=== PATIENT | male | born 1950 | race Hispanic/Latino ===

== ENCOUNTER 2017-05-11 10:58 | Inpatient (IN) | payer BC ==
[2017-05-11] MEDS ORDERED: Albuterol-Ipratrop 3 mg / 0.5 (3 ml) UD ONE (11:42)
--- NOTE | 2017-05-11 12:33 | C.PDOC ---
History Of Present Illness 66 y/o male, with history of metastatic lung cancer, presents to the ER complaining of a new onset of SOB which has been present for the past 1-2 weeks. Patient has SERNA with minor exertion. Patient s/p nebulizer treatment states that there is no significant improvement. Denies associated chest pain and dizziness. Denies history of CHF and lung disease. He is currently in hematology/oncology treatment for the past 1 month at [facility]. He is pending a lung transplant. Time Seen by Provider: 05/11/17 12:06 Chief Complaint (Nursing): Shortness Of Breath History Per: Patient History/Exam Limitations: no limitations Onset/Duration Of Symptoms: Days Current Symptoms Are (Timing): Still Present Severity: Moderate Past Medical History Reviewed: Historical Data, Nursing Documentation, Vital Signs Vital Signs: Last Vital Signs Temp 97.7 F 05/11/17 15:36 Pulse 76 05/11/17 15:36 Resp 18 05/11/17 15:36 BP 124/74 05/11/17 15:36 Pulse Ox 99 05/11/17 15:36 - Medical History PMH: Cardia Arrhythmia, HTN Surgical History: Pacemaker - [facility] INCIS W REM OF FORIEGN BODY OR DEV FROM SKIN & SUBCUT TISSUE (12/22/12) INITIAL INSERT TRANS LEADS INTO ATRIUM [employer] VENTRICLE (01/10/13) INITIAL INSERTION OF DUAL-CHAMBER DEVICE (01/10/13) REVISION OR RELOCATION OF CARDIAC DEVICE POCKET (10/13/12) Family History: States: No Known Family Hx - Social History Hx Tobacco Use: No Hx Alcohol Use: No Hx Substance Use: Yes - Immunization History Hx Influenza Vaccination: Yes Hx Pneumococcal Vaccination: Yes Review Of Systems Except As Marked, All Systems Reviewed And Found Negative. Cardiovascular: Negative for: Chest Pain Respiratory: Positive for: Shortness of Breath Neurological: Negative for: Dizziness Physical Exam - Physical Exam Appears: Non-toxic, Other (mild respiratory distress) Skin: Normal Color, Warm Head: Atraumatic, Normacephalic Eye(s): bilateral: Normal Inspection Chest: Symmetrical Cardiovascular: Other (RRR) Respiratory: Other (dyspnea,no edema, speaking full sentences) Gastrointestinal/Abdominal: Soft Extremity: Normal ROM, No Pedal Edema Extremity: Bilateral: Atraumatic Neurological/Psych: Oriented x3, Normal Speech ED Course And Treatment - Laboratory Results Result Diagrams: 05/11/17 13:26 05/11/17 13:26 ECG: Interpreted By Me, Viewed By Me ECG Rhythm: Sinus Rhythm Rate From EC O2 Sat by Pulse Oximetry: 96 (RA) Pulse Ox Interpretation: Normal - Other Rad CXR X-Ray: Interpreted by Me, Viewed By Me Interpretation: Increased vascular congestion compared to CXR- 2016, elevated right hemidiaphragm. Progress - Re-Evaluation Re-evaluation Note: 05/11/17 15:42 D/W DR GLOVER AWARE OF ER FINDINGS WILL ADMIT 05/11/17 15:43 PERSIST SOB, SERNA W MIN EXERTION. VSS. - Data Reviewed Data Reviewed: Lab, Diagnostic imaging, EKG, Old records - Critical Care Citical Care: Excluding Proc Time Critical Care Time: 90 minutes Medical Decision Making Medical Decision Making: Plan --Labs --CXR --O2 via nasal cannula Disposition Counseled Patient/Family Regarding: Studies Performed, Diagnosis - Disposition Disposition: HOSPITALIZED Disposition Time: 15:43 Condition: STABLE Forms: [employer] ([place]) - POA Present On Arrival: None - Clinical Impression Clinical Impression: Dyspnea, Pneumonia - Scribe Statement The provider has reviewed the documentation as recorded by the Shahnaz Lobo Provider Attestation: All medical record entries made by the Scribe were at my direction and personally dictated by me. I have reviewed the chart and agree that the record accurately reflects my personal performance of the history, physical exam, medical decision making, and the department course for this patient. I have also personally directed, reviewed, and agree with the discharge instructions and disposition.
--- NOTE | 2017-05-11 13:25 | RAD ---
Chest x-ray two views History: Liver cancer. Comparison: 03/05/2016 Findings Right basilar atelectasis with small right pleural effusion. Trace left pleural effusion. Venous congestion. A small nodular density at the right lung apex may represent small nodule and or granuloma. Left hilar prominence. Tortuous ectatic aorta. Mild cardiomegaly. Elevated right hemidiaphragm. Left-sided pacemaker. Degenerative changes the spine and shoulders. Impression: Right basilar atelectasis with small right pleural effusion. Trace left pleural effusion. Venous congestion. A small nodular density at the right lung apex may represent small nodule and or granuloma. Left hilar prominence. Tortuous ectatic aorta. Mild cardiomegaly. Elevated right hemidiaphragm. Left-sided pacemaker.
[2017-05-11 13:32] LABS: BASO # 0.1 K/uL (0.0-0.2); LYMPH # 0.4 K/uL (1.0-4.3); NEUT # 4.2 K/uL (1.8-7.0)
[2017-05-11 13:39] LABS: EOS % 0.5 % (0.0-4.0); LYMPH % 6.8 % (20.0-40.0); MEAN CELL VOLUME 98.1 fL (80.0-94.0); MEAN CORPUSCULAR HEMOGLOBIN 33.8 pg (27.0-31.0); MEAN CORPUSCULAR HGB CONC 34.4 g/dL (33.0-37.0); MEAN PLATELET VOLUME 9.2 fL (7.2-11.7); MONO # 0.9 K/uL (0.0-0.8); MONO % 15.9 % (0.0-10.0); NEUT % 75.8 % (50.0-75.0); NRBC % 0.1 % (0.0-2.0); RBC 3.82 Mil/uL (4.40-5.90); RED CELL DISTRIBUTION WIDTH 14.4 % (11.5-14.5)
[2017-05-11 13:40] LABS: VENOUS BLOOD GAS BASE EXCESS 3.9 mmol/L (0.0-2.0); VENOUS BLOOD GAS PCO2 51 mmHg (40-60); VENOUS BLOOD GAS PO2 15 mm/Hg (30-55); VENOUS BLOOD PH 7.38 (7.32-7.43)
[2017-05-11 13:41] LABS: INR 1.5; PROTHROMBIN TIME 16.9 SECONDS (9.7-12.2)
[2017-05-11 13:48] LABS: ALB/GLOB RATIO 0.8 (1.0-2.1); ALBUMIN 3.2 g/dL (3.5-5.0); ALT/SGPT 55 U/L (21-72); AST/SGOT 83 U/L (17-59); BLOOD UREA NITROGEN 9 mg/dL (9-20); GFR AFRICAN-AMERICAN > 60; GFR NON-AFRICAN AMERICAN > 60
[2017-05-11 13:49] LABS: HEMOGLOBIN 12.9 g/dL (12.0-18.0); WHITE BLOOD COUNT 5.5 K/uL (4.8-10.8)
[2017-05-11 13:50] LABS: PLATELET COUNT 102 K/uL (130-400)
[2017-05-11 13:57] LABS: B-TYPE NATRIURETIC PEPTIDE 549 pg/mL (0-900)
[2017-05-11] MEDS ORDERED: Iodixanol 320 MG/ML 100 ML BOTTLE IV ONE (14:18)
[2017-05-11 14:39] LABS: BANDS 5 % (0-2); EOSINOPHIL 1 % (0-4); LYMPHOCYTE 10 % (20-40); MONOCYTE 4 % (0-10); NEUTROPHIL 79 % (50-75); PLATELET ESTIMATE SLIGHTLY DECREASED (NORMAL); REACTIVE LYMPHOCYTES 1 % (0-0); TOTAL CELLS COUNTED 100
--- NOTE | 2017-05-11 15:17 | CT ---
CTA chest PE protocol Indication: SOB ho liver ca Technique: Contiguous axial images were obtained through the chest with intravenous contrast enhancement. Sagittal and coronal reconstructions were generated and reviewed. This CT exam was performed using 1 or more of the following dose reduction techniques: Automated exposure control, adjustment of the MAA and/or kV according to patient size, and/or use of iterative reconstruction technique. IV Contrast: 100 mL Visipaque 320 Radiation dose (DLP): 573.23 MGy-cm. Comparison: Chest x-ray performed 06/14/13 Findings: Visualized portions of the inferior thyroid gland appear unremarkable. The mediastinal and hilar vascular structures appear within normal limits. The heart appears within normal limits of size. Single lead left-sided pacemaker. No large central or segmental pulmonary embolus evident. Right basilar atelectasis/infiltrate. Trace fluid along the right-sided fissures. No pneumothorax. No suspicious pulmonary nodules measuring greater than 5 mm. Elevation of the right hemidiaphragm. Limited visualized portions of the upper abdomen ; partially imaged splenomegaly. Perihepatic/upper abdominal ascites. Heterogeneous hepatic parenchyma. Nodular hepatic contour. Probable suture material within the right upper quadrant along the undersurface of the liver. Scoliosis. Degenerative changes. Impression: No large central or segmental pulmonary embolus identified. Single lead left-sided pacemaker. Right basilar atelectasis/infiltrate. Trace fluid along the right-sided fissures. Elevation of the right hemidiaphragm. Limited visualized portions of the upper abdomen ; partially imaged splenomegaly. Perihepatic/upper abdominal ascites. Heterogeneous hepatic parenchyma. Nodular hepatic contour. Probable suture material within the right upper quadrant along the undersurface of the liver.
[2017-05-11] MEDS ORDERED: cefTRIAXone IV 1 gm in Dextros 50 ML IV STA (15:42)
[2017-05-11] MEDS ORDERED: Azithromycin 500 MG in Sodium Chloride 0.9% 250 ML IV STA (15:42)
--- NOTE | 2017-05-11 16:01 | CP.PCM.HP ---
History of Present Illness - History of Present Illness History of Present Illness: Chief complaint: Cough and not feeling well, shortness of breath History of present illness: 66-year-old male with a history of multiple medical problems including history of hepatocellular carcinoma, liver cirrhosis, status post a resection of the partial liver, radiofrequency ablation, hypertension, SVT, status post ablation and pacemaker. Patient is not feeling well for almost a week, gradually got worse, increasing chills and feverish noted. Patient started having increasing cough, and shortness of breath, unable to breathe well today, he came to the emergency room. Patient is also having chills and sweating pleuritic pain The patient was seen by me almost a year ago in my office, currently he is being followed up by the liver transplant clinic at [facility], and he is being periodically evaluated. Patient now having cough, sore throat, chills, and also productive sputum. Symptoms the particular mucus noted. Patient was taking [id number] medication, without any improvement. Past medical history: Hypertension, SVT, status post ablation, liver cirrhosis, hepatocellular carcinoma, status post resection of tumor Surgical history: Hemorrhoidectomy, radiofrequency ablation of the liver tumor, partial resection of the liver, pacemaker placement. No known drug allergy Family history: Father and mother of natural causes. Father had a history of pulmonary embolism, mother had a history of heart failure. Social history: Former smoker. Quit many years ago. No alcoholic abuse. Denies any drugs Review of systems: Patient is having some headache, cough increasing, wheezing and shortness of breath, with mucous production noted productive cough moted Leg swelling and weakness noted Vital signs reviewed No neck vein distention noted Bilateral minimal expiratory wheezing noted CVS regular heart sound, no murmur noted Abdomen soft, nontender. 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 Now patient was admitted to the hospital with the possibility community acquired pneumonia. Patient is on IV antibiotic now, will continue the Rocephin and Zithromax intravenously. Bronchodilators. Cough medications. Labs the patient had 24-hour see how he does. DVT and GI prophylaxis and will follow the patient Present on Admission - Present on Admission Any Indicators Present on Admission: No History of DVT/PE: No History of Uncontrolled Diabetes: No Urinary Catheter: No Decubitus Ulcer Present: No Past Patient History - Past Social History Smoking Status: Never Smoked - CARDIAC Hx Cardia Arrhythmia: Yes Hx Hypertension: Yes Hx Pacemaker: Yes - HEMATOLOGICAL/ONCOLOGICAL Hx Blood Disorders: Yes Hx Cancer: Yes (Liver) Hx Chemotherapy: Yes (2 months ago) - PSYCHIATRIC Hx Substance Use: Yes - SURGICAL HISTORY Hx Surgeries: Yes Other/Comment: Liver surgery. Meds Allergies/Adverse Reactions: Allergies Allergy/AdvReac Type Severity Reaction Status Date / Time propofol Allergy Verified 05/11/17 11:52 Results - Vital Signs Recent Vital Signs: Last Vital Signs Temp 97.7 F 05/11/17 15:36 Pulse 76 05/11/17 15:36 Resp 18 05/11/17 15:36 BP 124/74 05/11/17 15:36 Pulse Ox 96 05/11/17 15:43 - Labs Result Diagrams: 05/11/17 13:26 05/11/17 13:26 Labs: Laboratory Results - last 24 hr 05/11/17 05/11/17 05/11/17 13:26 13:26 13:26 WBC 5.5 D RBC 3.82 L Hgb 12.9 D Hct 37.4 MCV 98.1 H MCH 33.8 H MCHC 34.4 RDW 14.4 Plt Count 102 L D MPV 9.2 Neut % (Auto) 75.8 H Lymph % (Auto) 6.8 L Ransom % (Auto) 15.9 H Eos % (Auto) 0.5 Baso % (Auto) 1.0 Neut # (Auto) 4.2 Lymph # (Auto) 0.4 L Ransom # (Auto) 0.9 H Eos # (Auto) 0.0 Baso # (Auto) 0.1 Neutrophils % (Manual) 79 H Band Neutrophils % 5 H Lymphocytes % (Manual) 10 L Reactive Lymphs % 1 H Monocytes % (Manual) 4 Eosinophils % (Manual) 1 Platelet Estimate Slightly decreased L RBC Morphology Normal PT 16.9 H INR 1.5 APTT 30 pO2 VBG pH VBG pCO2 VBG HCO3 VBG Total CO2 VBG O2 Sat (Calc) VBG Base Excess VBG Potassium Glucose Lactate Sodium 139 Potassium 3.3 L Chloride 100 Carbon Dioxide 30 Anion Gap 13 BUN 9 Creatinine 0.6 L Est GFR ( Amer) > 60 Est GFR (Non-Af Amer) > 60 Random Glucose 98 Calcium 8.0 L Total Bilirubin 2.2 H AST 83 H ALT 55 Alkaline Phosphatase 149 H Troponin I < 0.0120 NT-Pro-B Natriuret Pep 549 Total Protein 7.0 Albumin 3.2 L Globulin 3.9 Albumin/Globulin Ratio 0.8 L Venous Blood Potassium 05/11/17 13:36 WBC RBC Hgb Hct MCV MCH MCHC RDW Plt Count MPV Neut % (Auto) Lymph % (Auto) Ransom % (Auto) Eos % (Auto) Baso % (Auto) Neut # (Auto) Lymph # (Auto) Ransom # (Auto) Eos # (Auto) Baso # (Auto) Neutrophils % (Manual) Band Neutrophils % Lymphocytes % (Manual) Reactive Lymphs % Monocytes % (Manual) Eosinophils % (Manual) Platelet Estimate RBC Morphology PT INR APTT pO2 15 L VBG pH 7.38 VBG pCO2 51 VBG HCO3 25.8 VBG Total CO2 31.8 H VBG O2 Sat (Calc) 20.9 L VBG Base Excess 3.9 H VBG Potassium 3.1 L Glucose 97 Lactate 1.6 Sodium 139.0 Potassium Chloride 101.0 Carbon Dioxide Anion Gap BUN Creatinine Est GFR ( Amer) Est GFR (Non-Af Amer) Random Glucose Calcium Total Bilirubin AST ALT Alkaline Phosphatase Troponin I NT-Pro-B Natriuret Pep Total Protein Albumin Globulin Albumin/Globulin Ratio Venous Blood Potassium 3.1 L
[2017-05-11] MEDS ORDERED: cefTRIAXone IV 1 gm in Dextros 50 ML IVPB ONE (16:02)
[2017-05-11] MEDS: Albuterol-Ipratrop 3 mg / 0.5 (3 ml) UD INH SCH (20:50)
[2017-05-12] MEDS: Albuterol-Ipratrop 3 mg / 0.5 (3 ml) UD INH SCH ×4 (02:02→20:11)
[2017-05-12] MEDS: Promethazine 6.25 MG/5 ML CUP PO PRN ×2 (05:04→14:36)
[2017-05-12] MEDS: Azithromycin 500 MG in Sodium Chloride 0.9% 250 ML IVPB SCH (09:35)
[2017-05-12] MEDS: cefTRIAXone IV 1 gm in Dextros 50 ML IVPB SCH (09:35)
[2017-05-12] MEDS: Metoprolol Succinate 25 mg XL Tab PO SCH (09:36)
[2017-05-12] MEDS: Pantoprazole 20 mg EC Tab PO SCH (09:36)
[2017-05-12] MEDS ORDERED: Tramadol 25 mg PO PRN (14:07)
[2017-05-12] MEDS: MethylPREDNISolone 40 mg Vial IVP SCH (14:36)
--- NOTE | 2017-05-12 21:11 | CP.PCM.PN ---
Subjective - Date & Time of Evaluation Date of Evaluation: 05/12/17 Time of Evaluation: 21:10 - Subjective Subjective: Patient is morning was having increasing coughing, and shortness of breath. At this time he is receiving bronchodilators. Currently on antibiotic. The mucus is very scanty. He does not have any fever or chills. Vital signs reviewed No neck vein distention noted lungs bilaterally minimal expiratory wheezing noted especially in the lower lung drew. CVS regular heart sound, no murmur noted Abdomen soft, nontender. 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 CAT scan of the lungs showing evidence of right lower lung atelectatic, versus pneumonia Assessment and recommendation: 66-year-old male with a history of hepatocellular carcinoma, liver cirrhosis, status post resection of partial liver, radiofrequency ablation, hypertension, SVT and status post ablation and pacemaker. Patient now admitted with worsening bronchitis, and associated minimal pneumonia. will pro calcitonin level. Will start the patient on Solu-Medrol today. Currently on antibiotic. Will follow the patient Objective - Vital Signs/Intake and Output Vital Signs (last 24 hours): Temp Pulse Resp BP Pulse Ox 98.7 F 84 20 129/74 97 05/12/17 15:23 05/12/17 15:23 05/12/17 15:23 05/12/17 15:23 05/12/17 16:00 Intake and Output: 05/12/17 05/13/17 18:59 06:59 Intake Total 720 Balance 720 - Medications Medications: Current Medications Albuterol/Ipratropium (Duoneb 3 Mg/0.5 Mg (3 Ml) Ud) 3 ml INH RQ6 [facility] Last Admin: 05/12/17 20:11 Dose: 3 ml Heparin Sodium (Porcine) (Heparin) 5,000 units SC Q12 [facility] Last Admin: 05/12/17 09:36 Dose: 5,000 units Ceftriaxone Sodium (Rocephin Iv 1 Gm Duplex) 50 mls @ 100 mls/hr IVPB DAILY [facility] Last Admin: 05/12/17 09:35 Dose: 100 mls/hr Azithromycin 500 mg/ Sodium (Chloride) 250 mls @ 250 mls/hr IVPB DAILY [facility] Last Admin: 05/12/17 09:35 Dose: 250 mls/hr Methylprednisolone (Solu-Medrol) 40 mg IVP Q12H [facility] Last Admin: 05/12/17 14:36 Dose: 40 mg Metoprolol Succinate (Toprol Xl) 25 mg PO DAILY [facility] Last Admin: 05/12/17 09:36 Dose: 25 mg Pantoprazole Sodium (Protonix Ec Tab) 20 mg PO DAILY [facility] Last Admin: 05/12/17 09:36 Dose: 20 mg Promethazine HCl (Phenergan Syrup) 6.25 mg PO Q6 PRN PRN Reason: Cough Last Admin: 05/12/17 14:36 Dose: 6.25 mg Tramadol HCl (Ultram) 25 mg PO TID PRN PRN Reason: headche Last Admin: 05/12/17 14:37 Dose: 25 mg - Labs Labs: 05/11/17 13:26 05/11/17 13:26 PT 16.9 SECONDS (9.7-12.2) H 05/11/17 13:26 INR 1.5 05/11/17 13:26 APTT 30 SECONDS (21-34) 05/11/17 13:26
[2017-05-13] MEDS: Albuterol-Ipratrop 3 mg / 0.5 (3 ml) UD INH SCH ×5 (01:19→22:00)
[2017-05-13] MEDS: MethylPREDNISolone 40 mg Vial IVP SCH ×3 (01:45→21:27)
[2017-05-13 07:48] LABS: ALB/GLOB RATIO 0.8 (1.0-2.1); ALBUMIN 2.8 g/dL (3.5-5.0); ALT/SGPT 42 U/L (21-72); AST/SGOT 58 U/L (17-59); BLOOD UREA NITROGEN 10 mg/dL (9-20); CALCIUM 7.5 mg/dl (8.6-10.4); GFR AFRICAN-AMERICAN > 60; GFR NON-AFRICAN AMERICAN > 60
[2017-05-13 08:06] LABS: BASO % 0.2 % (0.0-2.0); EOS % 0.1 % (0.0-4.0); HEMOGLOBIN 12.6 g/dL (12.0-18.0); LYMPH # 0.2 K/uL (1.0-4.3); LYMPH % 5.7 % (20.0-40.0); MEAN CELL VOLUME 98.2 fL (80.0-94.0); MEAN CORPUSCULAR HEMOGLOBIN 33.9 pg (27.0-31.0); MEAN CORPUSCULAR HGB CONC 34.5 g/dL (33.0-37.0); MEAN PLATELET VOLUME 9.5 fL (7.2-11.7); MONO # 0.1 K/uL (0.0-0.8); MONO % 4.4 % (0.0-10.0); NEUT % 89.6 % (50.0-75.0); NRBC % 0.4 % (0.0-2.0); PLATELET COUNT 94 K/uL (130-400); RBC 3.73 Mil/uL (4.40-5.90); RED CELL DISTRIBUTION WIDTH 13.7 % (11.5-14.5); WHITE BLOOD COUNT 3.3 K/uL (4.8-10.8)
[2017-05-13 09:07] LABS: BANDS 1 % (0-2); LYMPHOCYTE 6 % (20-40); MONOCYTE 3 % (0-10); NEUTROPHIL 90 % (50-75); PLATELET ESTIMATE DECREASED (NORMAL); TOTAL CELLS COUNTED 100
[2017-05-13] MEDS: Pantoprazole 20 mg EC Tab PO SCH (09:40)
[2017-05-13] MEDS: Metoprolol Succinate 25 mg XL Tab PO SCH (09:40)
[2017-05-13] MEDS: cefTRIAXone IV 1 gm in Dextros 50 ML IVPB SCH (09:41)
[2017-05-13] MEDS: Azithromycin 500 MG in Sodium Chloride 0.9% 250 ML IVPB SCH (09:42)
--- NOTE | 2017-05-13 20:32 | CP.PCM.PN ---
Subjective - Date & Time of Evaluation Date of Evaluation: 05/13/17 Time of Evaluation: 20:32 - Subjective Subjective: Patient is still having increasing coughing spells, coughing episodes. Mostly dry cough noted. The patient was able to walk around, but he is feeling somewhat winded, SOB noted upon walking. No oxygen desaturation noted. Patient is eating well, denies any chest pain, but the right-sided pleuritic discomfort noted Vital signs reviewed Vital signs reviewed No neck vein distention noted Chest good air entry bilaterally, no wheezing or rales noted CVS regular heart sound, no murmur noted Abdomen soft, nontender. 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 Vital signs and oxygen saturation today is normal. Mild tachycardia noted today, he is also having tremors in the hands after the nebulizer. Assessment compression: Patient is a 66-year-old male with a history of hepatocellular carcinoma, liver cirrhosis, status post partial liver resection, radiofrequency ablation, hypertension and SVT. Status post ablation and pacemaker. procalcitonin level is normal, less likely pneumonia, most likely patient has a acute bronchitis. We'll reduce the steroid, continue antibiotic, possible discharge planning the morning. Objective - Vital Signs/Intake and Output Vital Signs (last 24 hours): Temp Pulse Resp BP Pulse Ox 98.2 F 65 18 111/65 97 05/13/17 15:50 05/13/17 15:50 05/13/17 15:50 05/13/17 15:50 05/13/17 15:50 Intake and Output: 05/13/17 05/14/17 18:59 06:59 Intake Total 950 Balance 950 - Medications Medications: Current Medications Albuterol/Ipratropium (Duoneb 3 Mg/0.5 Mg (3 Ml) Ud) 3 ml INH Q8 [facility] Heparin Sodium (Porcine) (Heparin) 5,000 units SC Q12 [facility] Last Admin: 05/13/17 09:40 Dose: 5,000 units Ceftriaxone Sodium (Rocephin Iv 1 Gm Duplex) 50 mls @ 100 mls/hr IVPB DAILY [facility] Last Admin: 05/13/17 09:41 Dose: 100 mls/hr Azithromycin 500 mg/ Sodium (Chloride) 250 mls @ 250 mls/hr IVPB DAILY [facility] Last Admin: 05/13/17 09:42 Dose: 250 mls/hr Methylprednisolone (Solu-Medrol) 20 mg IVP Q12H [facility] Stop: 05/15/17 14:16 Metoprolol Succinate (Toprol Xl) 25 mg PO DAILY [facility] Last Admin: 05/13/17 09:40 Dose: 25 mg Pantoprazole Sodium (Protonix Ec Tab) 20 mg PO DAILY [facility] Last Admin: 05/13/17 09:40 Dose: 20 mg Promethazine HCl (Phenergan Syrup) 6.25 mg PO Q6 PRN PRN Reason: Cough Last Admin: 05/12/17 14:36 Dose: 6.25 mg Tramadol HCl (Ultram) 25 mg PO TID PRN PRN Reason: headche Last Admin: 05/12/17 14:37 Dose: 25 mg - Labs Labs: 05/13/17 07:19 05/13/17 07:19 PT 16.9 SECONDS (9.7-12.2) H 05/11/17 13:26 INR 1.5 05/11/17 13:26 APTT 30 SECONDS (21-34) 05/11/17 13:26
[2017-05-14] MEDS: Albuterol-Ipratrop 3 mg / 0.5 (3 ml) UD INH SCH ×3 (01:33→16:50)
[2017-05-14 08:44] VITALS: RESP 20
[2017-05-14] MEDS: cefTRIAXone IV 1 gm in Dextros 50 ML IVPB SCH (09:30)
[2017-05-14] MEDS: Azithromycin 500 MG in Sodium Chloride 0.9% 250 ML IVPB SCH (09:30)
[2017-05-14] MEDS: Metoprolol Succinate 25 mg XL Tab PO SCH (09:31)
[2017-05-14] MEDS: MethylPREDNISolone 40 mg Vial IVP SCH ×2 (09:32→20:43)
[2017-05-14] MEDS: Promethazine 6.25 MG/5 ML CUP PO PRN (09:32)
[2017-05-14] MEDS: Pantoprazole 20 mg EC Tab PO SCH (09:34)
--- NOTE | 2017-05-14 22:35 | CARD ---
APPROVED REPORT EKG Measurement Heart [id number] <Conclusion> Normal sinus rhythm Cannot rule out Anterior infarct, age undetermined Abnormal ECG
[2017-05-15] MEDS: Albuterol-Ipratrop 3 mg / 0.5 (3 ml) UD INH SCH ×4 (00:46→23:42)
[2017-05-15] MEDS: Metoprolol Succinate 25 mg XL Tab PO SCH (09:11)
[2017-05-15] MEDS: Pantoprazole 20 mg EC Tab PO SCH (09:11)
[2017-05-15] MEDS: Azithromycin 500 MG in Sodium Chloride 0.9% 250 ML IVPB SCH (09:11)
[2017-05-15] MEDS: Promethazine 6.25 MG/5 ML CUP PO PRN (09:11)
[2017-05-15] MEDS: MethylPREDNISolone 40 mg Vial IVP SCH (09:12)
[2017-05-15] MEDS: cefTRIAXone IV 1 gm in Dextros 50 ML IVPB SCH (12:15)
[2017-05-15 16:23] VITALS: O2SAT 96
--- NOTE | 2017-05-15 23:01 | CP.PCM.PN ---
Subjective - Date & Time of Evaluation Date of Evaluation: 05/15/17 Time of Evaluation: 23:00 Objective - Vital Signs/Intake and Output Vital Signs (last 24 hours): Temp Pulse Resp BP Pulse Ox 98.0 F 68 20 123/66 96 05/15/17 15:22 05/15/17 15:22 05/15/17 15:22 05/15/17 15:22 05/15/17 15:22 Intake and Output: 05/15/17 05/16/17 18:59 06:59 Intake Total 650 Balance 650 - Medications Medications: Current Medications Albuterol/Ipratropium (Duoneb 3 Mg/0.5 Mg (3 Ml) Ud) 3 ml INH RQ8 [facility] Last Admin: 05/15/17 16:48 Dose: 3 ml Ceftriaxone Sodium (Rocephin Iv 1 Gm Duplex) 50 mls @ 100 mls/hr IVPB DAILY [facility] Last Admin: 05/15/17 12:15 Dose: 100 mls/hr Azithromycin 500 mg/ Sodium (Chloride) 250 mls @ 250 mls/hr IVPB DAILY [facility] Last Admin: 05/15/17 09:11 Dose: 250 mls/hr Metoprolol Succinate (Toprol Xl) 25 mg PO DAILY [facility] Last Admin: 05/15/17 09:11 Dose: 25 mg Pantoprazole Sodium (Protonix Ec Tab) 20 mg PO DAILY [facility] Last Admin: 05/15/17 09:11 Dose: 20 mg Promethazine HCl (Phenergan Syrup) 6.25 mg PO Q6 PRN PRN Reason: Cough Last Admin: 05/15/17 09:11 Dose: 6.25 mg Tramadol HCl (Ultram) 25 mg PO TID PRN PRN Reason: headche Last Admin: 05/12/17 14:37 Dose: 25 mg - Labs Labs: 05/13/17 07:19 05/13/17 07:19 PT 16.9 SECONDS (9.7-12.2) H 05/11/17 13:26 INR 1.5 05/11/17 13:26 APTT 30 SECONDS (21-34) 05/11/17 13:26
[2017-05-16] MEDS: Albuterol-Ipratrop 3 mg / 0.5 (3 ml) UD INH SCH (07:28)
[2017-05-16 07:55] VITALS: BP 118/69; PULSE 75; TEMP 98.1
[2017-05-16] MEDS: Azithromycin 500 MG in Sodium Chloride 0.9% 250 ML IVPB SCH (10:05)
[2017-05-16] MEDS: Pantoprazole 20 mg EC Tab PO SCH (10:06)
[2017-05-16] MEDS: Metoprolol Succinate 25 mg XL Tab PO SCH (10:06)
[2017-05-16] MEDS: cefTRIAXone IV 1 gm in Dextros 50 ML IVPB SCH (11:00)
--- NOTE | 2017-05-16 12:02 | CP.PCM.DIS ---
Provider - Provider Date of Admission: 05/13/17 17:32 Attending physician: Ally Martin MD Hospital Course - Lab Results Lab Results: Micro Results 05/11/17 15:43 Blood Blood Culture - Preliminary NO GROWTH AFTER 4 DAYS 05/11/17 15:43 Blood Blood Culture - Preliminary NO GROWTH AFTER 4 DAYS Most Recent Lab Values WBC 3.3 K/uL (4.8-10.8) L 05/13/17 07:19 RBC 3.73 Mil/uL (4.40-5.90) L 05/13/17 07:19 Hgb 12.6 g/dL (12.0-18.0) 05/13/17 07:19 Hct 36.6 % (35.0-51.0) 05/13/17 07:19 MCV 98.2 fL (80.0-94.0) H 05/13/17 07:19 MCH 33.9 pg (27.0-31.0) H 05/13/17 07:19 MCHC 34.5 g/dL (33.0-37.0) 05/13/17 07:19 RDW 13.7 % (11.5-14.5) 05/13/17 07:19 Plt Count 94 K/uL (130-400) L 05/13/17 07:19 MPV 9.5 fL (7.2-11.7) 05/13/17 07:19 Neut % (Auto) 89.6 % (50.0-75.0) H 05/13/17 07:19 Lymph % (Auto) 5.7 % (20.0-40.0) L 05/13/17 07:19 Glades % (Auto) 4.4 % (0.0-10.0) 05/13/17 07:19 Eos % (Auto) 0.1 % (0.0-4.0) 05/13/17 07:19 Baso % (Auto) 0.2 % (0.0-2.0) 05/13/17 07:19 Neut # (Auto) 3.0 K/uL (1.8-7.0) 05/13/17 07:19 Lymph # (Auto) 0.2 K/uL (1.0-4.3) L 05/13/17 07:19 Glades # (Auto) 0.1 K/uL (0.0-0.8) 05/13/17 07:19 Eos # (Auto) 0.0 K/uL (0.0-0.7) 05/13/17 07:19 Baso # (Auto) 0.0 K/uL (0.0-0.2) 05/13/17 07:19 Neutrophils % (Manual) 90 % (50-75) H 05/13/17 07:19 Band Neutrophils % 1 % (0-2) 05/13/17 07:19 Lymphocytes % (Manual) 6 % (20-40) L 05/13/17 07:19 Reactive Lymphs % 1 % (0-0) H 05/11/17 13:26 Monocytes % (Manual) 3 % (0-10) 05/13/17 07:19 Eosinophils % (Manual) 1 % (0-4) 05/11/17 13:26 Platelet Estimate Decreased (NORMAL) L 05/13/17 07:19 RBC Morphology Normal 05/11/17 13:26 PT 16.9 SECONDS (9.7-12.2) H 05/11/17 13:26 INR 1.5 05/11/17 13:26 APTT 30 SECONDS (21-34) 05/11/17 13:26 pO2 15 mm/Hg (30-55) L 05/11/17 13:36 VBG pH 7.38 (7.32-7.43) 05/11/17 13:36 VBG pCO2 51 mmHg (40-60) 05/11/17 13:36 VBG HCO3 25.8 mmol/L 05/11/17 13:36 VBG Total CO2 31.8 mmol/L (22-28) H 05/11/17 13:36 VBG O2 Sat (Calc) 20.9 % (40-65) L 05/11/17 13:36 VBG Base Excess 3.9 mmol/L (0.0-2.0) H 05/11/17 13:36 VBG Potassium 3.1 mmol/L (3.6-5.2) L 05/11/17 13:36 Sodium 139.0 mmol/l (132-148) 05/11/17 13:36 Chloride 101.0 mmol/L (98-107) 05/11/17 13:36 Glucose 97 mg/dl (75-110) 05/11/17 13:36 Lactate 1.6 mmol/L (0.7-2.1) 05/11/17 13:36 Sodium 141 mmol/L (132-148) 05/13/17 07:19 Potassium 3.9 mmol/L (3.6-5.2) 05/13/17 07:19 Chloride 105 mmol/L (98-107) 05/13/17 07:19 Carbon Dioxide 28 mmol/L (22-30) 05/13/17 07:19 Anion Gap 12 (10-20) 05/13/17 07:19 BUN 10 mg/dL (9-20) 05/13/17 07:19 Creatinine 0.6 mg/dL (0.8-1.5) L 05/13/17 07:19 Est GFR ( Amer) > 60 05/13/17 07:19 Est GFR (Non-Af Amer) > 60 05/13/17 07:19 Random Glucose 147 mg/dL (75-110) H 05/13/17 07:19 Calcium 7.5 mg/dl (8.6-10.4) L 05/13/17 07:19 Total Bilirubin 1.2 mg/dL (0.2-1.3) 05/13/17 07:19 AST 58 U/L (17-59) 05/13/17 07:19 ALT 42 U/L (21-72) 05/13/17 07:19 Alkaline Phosphatase 125 U/L (38-126) 05/13/17 07:19 Troponin I < 0.0120 ng/mL (0.00-0.120) 05/11/17 13:26 NT-Pro-B Natriuret Pep 549 pg/mL (0-900) 05/11/17 13:26 Total Protein 6.5 g/dL (6.3-8.3) 05/13/17 07:19 Albumin 2.8 g/dL (3.5-5.0) L 05/13/17 07:19 Globulin 3.7 gm/dL (2.2-3.9) 05/13/17 07:19 Albumin/Globulin Ratio 0.8 (1.0-2.1) L 05/13/17 07:19 Procalcitonin 0.07 NG/ML (0.19-0.49) L 05/13/17 07:19 Venous Blood Potassium 3.1 mmol/L (3.6-5.2) L 05/11/17 13:36 Discharge Plan - Follow Up Plan Condition: STABLE Disposition: HOME/ ROUTINE
[2017-05-16] MEDS ORDERED: Pneumococcal 23-Valent Vaccine IM ONE (13:00)
== END 2017-05-16 14:17 | disposition home or self-care (01) | DRG 195 ==
LOC: C.ER 10:58 → C.9E 15:43 → C.6T 23:01 → OBSVTOIN 05-13 17:32
PROVIDERS: ADMIT Internal Medicine; ATTEND Internal Medicine
DX: J18.9 Pneumonia, unspecified organism (principal); J40 Bronchitis, not specified as acute or chronic; I10 Essential (primary) hypertension; K74.60 Unspecified cirrhosis of liver; Z85.05 Personal history of malignant neoplasm of liver; Z85.118 Personal history of other malignant neoplasm of bronchus and lung; Z87.891 Personal history of nicotine dependence; Z95.0 Presence of cardiac pacemaker

== ENCOUNTER 2017-05-17 07:30 | Inpatient (IN) | payer BC ==
[2017-05-17 07:44] VITALS: BMI 25.7
--- NOTE | 2017-05-17 08:38 | C.PDOC ---
History Of Present Illness CO NEWE ONSET INC ABD DISTENTION, WEIGHT GAIN, DISC. DC YESTERDAY S/P TX FOR PNA. NO PRIOR HX OF ASCITES DENIES FEVER NV SERNA 66-YEAR-OLD MALE, PRESENTS TO THE EMERGENCY DEPARTMENT WITH COMPLAINTS OF NEW ONSET INCREASING ABDOMINAL DISTENTION, WEIGHT GAIN, SERNA AND DISCOMFORT. PATIENT DISCHARGED FROM HOSPITAL YESTERDAY S/P TX FOR PNA. NO PRIOR HX OF ASCITES. DENIES FEVER N/V. PATIENT NOTES SHORTNESS OF BREATH WITH LIGHT ACTIVITY. Time Seen by Provider: 05/17/17 08:20 Chief Complaint (Nursing): Abdominal Pain History Per: Patient Onset/Duration Of Symptoms: Hrs Current Symptoms Are (Timing): Still Present Severity: Moderate Past Medical History Reviewed: Historical Data, Nursing Documentation, Vital Signs Vital Signs: Last Vital Signs Temp 98.3 F 05/17/17 07:44 Pulse 82 05/17/17 07:44 Resp 18 05/17/17 07:44 BP 130/79 05/17/17 07:44 Pulse Ox 97 05/17/17 10:31 - Medical History PMH: Cardia Arrhythmia, HTN Surgical History: Pacemaker - [employer] Procedures INCIS W REM OF FORIEGN BODY OR DEV FROM SKIN & SUBCUT TISSUE (12/22/12) INITIAL INSERT TRANS LEADS INTO [employer] (01/10/13) INITIAL INSERTION OF DUAL-CHAMBER DEVICE (01/10/13) REVISION OR RELOCATION OF CARDIAC DEVICE POCKET (10/13/12) Family History: States: No Known Family Hx - Social History Hx Tobacco Use: No Hx Alcohol Use: No Hx Substance Use: No - Immunization History Hx Tetanus Toxoid Vaccination: No Hx Influenza Vaccination: Yes Hx Pneumococcal Vaccination: Yes Review Of Systems Constitutional: Positive for: Other (weight gain). Negative for: Fever, Chills , Malaise Cardiovascular: Negative for: Palpitations Respiratory: Positive for: Shortness of Breath, SOB with Excertion Gastrointestinal: Positive for: Abdominal Pain (+distention) Musculoskeletal: Negative for: Neck Pain, Back Pain Skin: Negative for: Rash Neurological: Negative for: Weakness, Numbness, Headache, Dizziness Physical Exam - Physical Exam Appears: Other (MOD DISTRES) Skin: Normal Color, Warm, Dry, No Rash, No Jaundice Head: Atraumatic, Normacephalic Eye(s): bilateral: PERRL, EOMI, Other (ANICTERIC) Nose: Normal Oral Mucosa: Moist Neck: Normal ROM Cardiovascular: Rhythm Regular, No Murmur Respiratory: Normal Breath Sounds, No Accessory Muscle Use Gastrointestinal/Abdominal: Distention, No Guarding, No Rebound Extremity: Normal ROM, Capillary Refill (<2 seconds), No Deformity, No Swelling Pulses: Left Dorsalis Pedis: Normal, Right Dorsalis Pedis: Normal Neurological/Psych: Oriented x3, Normal Speech ED Course And Treatment - Laboratory Results Result Diagrams: 05/17/17 09:20 05/17/17 09:20 O2 Sat by Pulse Oximetry: 97 (RA) Pulse Ox Interpretation: Normal Progress - Re-Evaluation Re-evaluation Note: 05/17/17 10:31 EXAM UNCH PRIOR APPEARS COMFORTABLE. NO RESPONSE PMD SINCE 08. MULT MSGS ON 05/17/17 10:40 D/W DR CANNON HOSPITALIST WILL ADMIT - Data Reviewed Data Reviewed: Lab, Diagnostic imaging, Old records Medical Decision Making Medical Decision Making: Plan: Labs Chest X-Ray Reassess and Disposition Disposition Counseled Patient/Family Regarding: Studies Performed, Diagnosis - Disposition Disposition: HOSPITALIZED Disposition Time: 10:40 Condition: STABLE Forms: Molecular Sensing (Maori) - POA Present On Arrival: None - Clinical Impression Clinical Impression: Abdominal discomfort, Ascites, Dyspnea - Scribe Statement The provider has reviewed the documentation as recorded by the Scribe (Malina Kat) All medical record entries made by the Scribe were at my direction and personally dictated by me. I have reviewed the chart and agree that the record accurately reflects my personal performance of the history, physical exam, medical decision making, and the department course for this patient. I have also personally directed, reviewed, and agree with the discharge instructions and disposition. Decision To Admit - Pt Status Changed To: Hospital Disposition Of: Inpatient - Admit Certification Admit to Inpatient:: After my assessment, the patient will require hospitalization for at least two midnights. This is because of the severity of symptoms shown, intensity of services needed, and/or the medical risk in this patient being treated as an outpatient. - InPatient: Physician Admission Certification:: SEE NOTE - . Bed Request Type: Regular Admitting Physician: Nikolai Quintana Patient Diagnosis: Abdominal discomfort, Ascites, Dyspnea
[2017-05-17 09:28] LABS: BASO % 0.7 % (0.0-2.0); EOS # 0.1 K/uL (0.0-0.7); EOS % 1.2 % (0.0-4.0); LYMPH # 0.4 K/uL (1.0-4.3); LYMPH % 7.1 % (20.0-40.0); MEAN CELL VOLUME 98.4 fL (80.0-94.0); MEAN CORPUSCULAR HEMOGLOBIN 34.1 pg (27.0-31.0); MEAN CORPUSCULAR HGB CONC 34.6 g/dL (33.0-37.0); MEAN PLATELET VOLUME 8.4 fL (7.2-11.7); MONO # 0.8 K/uL (0.0-0.8); MONO % 14.6 % (0.0-10.0); NEUT # 4.2 K/uL (1.8-7.0); NEUT % 76.4 % (50.0-75.0); NRBC % 0.1 % (0.0-2.0); PLATELET COUNT 128 K/uL (130-400); RBC 4.09 Mil/uL (4.40-5.90); RED CELL DISTRIBUTION WIDTH 14.2 % (11.5-14.5); WHITE BLOOD COUNT 5.5 K/uL (4.8-10.8)
[2017-05-17 09:35] LABS: INR 1.5; PROTHROMBIN TIME 17.1 SECONDS (9.7-12.2)
--- NOTE | 2017-05-17 09:37 | RAD ---
PROCEDURE: CHEST RADIOGRAPH, 1 VIEW HISTORY: abd pain COMPARISON: Chest radiograph dated 05/11/2017. FINDINGS: LUNGS: Right basilar atelectasis. PLEURA: Stable elevation of the right hemidiaphragm. Small right pleural effusion. No pneumothorax. CARDIOVASCULAR: Left subclavian access single lead pacemaker redemonstrated atherosclerotic aortic calcifications. Cardiomediastinal silhouette unchanged. OSSEOUS STRUCTURES: Unchanged. VISUALIZED UPPER ABDOMEN: Normal. OTHER FINDINGS: None. IMPRESSION: Small right pleural effusion.
[2017-05-17 09:44] LABS: ALB/GLOB RATIO 0.7 (1.0-2.1); ALBUMIN 2.9 g/dL (3.5-5.0); ALT/SGPT 77 U/L (21-72); AST/SGOT 89 U/L (17-59); BLOOD UREA NITROGEN 14 mg/dL (9-20); GFR AFRICAN-AMERICAN > 60; GFR NON-AFRICAN AMERICAN > 60; LIPASE 113 U/L (23-300)
[2017-05-17 09:54] LABS: BANDS 2 % (0-2); EOSINOPHIL 1 % (0-4); LYMPHOCYTE 6 % (20-40); REACTIVE LYMPHOCYTES 3 % (0-0); TOTAL CELLS COUNTED 100
[2017-05-17 09:55] LABS: ANISOCYTOSIS SLIGHT; MONOCYTE 11 % (0-10); NEUTROPHIL 77 % (50-75); PLATELET ESTIMATE NORMAL (NORMAL)
[2017-05-17 09:57] LABS: POLYCHROMIC SLIGHT
--- NOTE | 2017-05-17 11:14 | CP.PCM.HP ---
<Asia Grimes - Last Filed: 05/17/17 17:17> History of Present Illness - History of Present Illness History of Present Illness: Medicine Note for Hospitalist Service- Dr. Donald CC: abdominal pain HPI: 66 Caucausian Male with PMHx as listed below presents to the ED with lower abdominal pain. Patient was discharged 05/16/17 for Acute Bronchitis. Patient reports when he arrived home, he started to fell very distended, bloated, gassy , and short of breath. He has been passing flatus and normal bowel movements, able to eat meals with no n/v. The bloated feeling continued to happen which is what brought the patient in. Abdominal US was done little ascites noted. Patient will be kept NPO, Obstructive series will be performed, and simethicone for relief. Denied fever, chills, chest pain, SOB, n/v/d/c, or urinary symptoms. PMHx: Hypertension, hepatocellular carcinoma, liver cirrhosis PSHx: Pacemaker, Liver resection Meds: As per MAR, held lactulose 20mg po daily All: NKDA SHx: Used to smoke many years ago, denied ETOH or illicit drug use, formerly employed a [employer] FHx: Mother- CHF, Father - PE PMD: Dr. Martin Present on Admission - Present on Admission Any Indicators Present on Admission: No Past Patient History - Past Medical History & Family History Past Medical History?: Yes - Past Social History Smoking Status: Never Smoked - CARDIAC Hx Cardia Arrhythmia: Yes Hx Hypertension: Yes Hx Pacemaker: Yes - PULMONARY Hx Respiratory Disorders: Yes Other/Comment: liver cancer-. partial removal of the liver 3 years ago - HEMATOLOGICAL/ONCOLOGICAL Hx Blood Disorders: Yes Hx Cancer: Yes (Liver) Hx Chemotherapy: Yes (2 months ago) - MUSCULOSKELETAL/RHEUMATOLOGICAL Hx Falls: No - PSYCHIATRIC Hx Substance Use: No - SURGICAL HISTORY Hx Surgeries: Yes Other/Comment: Liver surgery.- partail removal - ANESTHESIA Hx Anesthesia: Yes Hx Anesthesia Reactions: Yes Meds Allergies/Adverse Reactions: Allergies Allergy/AdvReac Type Severity Reaction Status Date / Time propofol Allergy Verified 05/17/17 07:44 Physical Exam - Constitutional Appears: No Acute Distress - Head Exam Head Exam: NORMAL INSPECTION, NORMOCEPHALIC - Eye Exam Eye Exam: EOMI, Normal appearance, PERRL Pupil Exam: NORMAL ACCOMODATION - ENT Exam ENT Exam: Mucous Membranes Moist - Neck Exam Neck exam: Positive for: Normal Inspection - Respiratory Exam Respiratory Exam: Clear to Auscultation Bilateral, NORMAL BREATHING PATTERN. absent: Decreased Breath Sounds - Cardiovascular Exam Cardiovascular Exam: REGULAR RHYTHM, RRR - GI/Abdominal Exam GI & Abdominal Exam: Distended, Normal Bowel Sounds, Soft. absent: Tenderness Additional comments: dull on percussion - Rectal Exam Rectal Exam: Deferred - Extremities Exam Extremities exam: Positive for: normal inspection, pedal pulses present. Negative for: pedal edema, tenderness - Neurological Exam Neurological exam: Alert, CN II-XII Intact, Oriented x3 - Psychiatric Exam Psychiatric exam: Normal Affect, Normal Mood - Skin Skin Exam: Dry, Intact, Normal Color, Warm Results - Vital Signs Recent Vital Signs: Last Vital Signs Temp 98.3 F 05/17/17 07:44 Pulse 82 05/17/17 07:44 Resp 18 05/17/17 07:44 BP 130/79 05/17/17 07:44 Pulse Ox 97 05/17/17 10:41 - Labs Result Diagrams: 05/17/17 09:20 05/17/17 09:20 Labs: Laboratory Results - last 24 hr 05/17/17 05/17/17 05/17/17 09:20 09:20 09:20 WBC 5.5 D RBC 4.09 L Hgb 14.0 Hct 40.3 MCV 98.4 H MCH 34.1 H MCHC 34.6 RDW 14.2 Plt Count 128 L D MPV 8.4 Neut % (Auto) 76.4 H Lymph % (Auto) 7.1 L [place] % (Auto) 14.6 H Eos % (Auto) 1.2 Baso % (Auto) 0.7 Neut # (Auto) 4.2 Lymph # (Auto) 0.4 L [place] # (Auto) 0.8 Eos # (Auto) 0.1 Baso # (Auto) 0.0 Neutrophils % (Manual) 77 H Band Neutrophils % 2 Lymphocytes % (Manual) 6 L Reactive Lymphs % 3 H Monocytes % (Manual) 11 H Eosinophils % (Manual) 1 Platelet Estimate Normal Polychromasia Slight Anisocytosis (manual) Slight PT 17.1 H INR 1.5 APTT 30 Sodium 140 Potassium 4.2 Chloride 102 Carbon Dioxide 30 Anion Gap 12 BUN 14 Creatinine 0.7 L Est GFR ( Amer) > 60 Est GFR (Non-Af Amer) > 60 Random Glucose 84 Calcium 8.0 L Total Bilirubin 1.4 H AST 89 H D ALT 77 H D Alkaline Phosphatase 148 H Total Protein 6.8 Albumin 2.9 L Globulin 3.9 Albumin/Globulin Ratio 0.7 L Lipase 113 Blood Type Antibody Screen 05/17/17 09:20 WBC RBC Hgb Hct MCV MCH MCHC RDW Plt Count MPV Neut % (Auto) Lymph % (Auto) [place] % (Auto) Eos % (Auto) Baso % (Auto) Neut # (Auto) Lymph # (Auto) [place] # (Auto) Eos # (Auto) Baso # (Auto) Neutrophils % (Manual) Band Neutrophils % Lymphocytes % (Manual) Reactive Lymphs % Monocytes % (Manual) Eosinophils % (Manual) Platelet Estimate Polychromasia Anisocytosis (manual) PT INR APTT Sodium Potassium Chloride Carbon Dioxide Anion Gap BUN Creatinine Est GFR ( Amer) Est GFR (Non-Af Amer) Random Glucose Calcium Total Bilirubin AST ALT Alkaline Phosphatase Total Protein Albumin Globulin Albumin/Globulin Ratio Lipase Blood Type A POSITIVE Antibody Screen Negative Assessment & Plan - Assessment and Plan (Free Text) Plan: Abdominal Pain Dull on percussion, appears more gas like Patient reports passing flatus and normal bowel movements, will need to rule out SBO (less likely) NPO Obstructive Series Meds: Simethicone 80mg PO Q6H PRN Hx Hepatocellular Carcinoma Hx Hepatitis C Hx Liver Cirrhosis Transaminitis S/P Resection Held lactulose 20mg PO daily Abdominal US: Cirrhotic Liver, minimal ascites Hx HTN Resumed metoprolol 25mg PO daily Hx Pacemaker Prophylactic Measures GI: Protonix 20mg PO daily DVT PPX: Lovenox 40mg SC daily DW Asia Damon DO, PGY-1 <Melina Donald V - Last Filed: 05/17/17 23:01> Results - Vital Signs Recent Vital Signs: Last Vital Signs Temp 98.2 F 05/17/17 15:51 Pulse 79 05/17/17 15:51 Resp 20 05/17/17 15:51 BP 176/70 H 05/17/17 15:51 Pulse Ox 97 05/17/17 15:51 - Labs Result Diagrams: 05/17/17 09:20 05/17/17 09:20 Labs: Laboratory Results - last 24 hr 05/17/17 05/17/17 05/17/17 09:20 09:20 09:20 WBC 5.5 D RBC 4.09 L Hgb 14.0 Hct 40.3 MCV 98.4 H MCH 34.1 H MCHC 34.6 RDW 14.2 Plt Count 128 L D MPV 8.4 Neut % (Auto) 76.4 H Lymph % (Auto) 7.1 L [place] % (Auto) 14.6 H Eos % (Auto) 1.2 Baso % (Auto) 0.7 Neut # (Auto) 4.2 Lymph # (Auto) 0.4 L [place] # (Auto) 0.8 Eos # (Auto) 0.1 Baso # (Auto) 0.0 Neutrophils % (Manual) 77 H Band Neutrophils % 2 Lymphocytes % (Manual) 6 L Reactive Lymphs % 3 H Monocytes % (Manual) 11 H Eosinophils % (Manual) 1 Platelet Estimate Normal Polychromasia Slight Anisocytosis (manual) Slight PT 17.1 H INR 1.5 APTT 30 Sodium 140 Potassium 4.2 Chloride 102 Carbon Dioxide 30 Anion Gap 12 BUN 14 Creatinine 0.7 L Est GFR ( Amer) > 60 Est GFR (Non-Af Amer) > 60 Random Glucose 84 Calcium 8.0 L Total Bilirubin 1.4 H AST 89 H D ALT 77 H D Alkaline Phosphatase 148 H Total Protein 6.8 Albumin 2.9 L Globulin 3.9 Albumin/Globulin Ratio 0.7 L Lipase 113 Hepatitis A IgM Ab Hep Bs Antigen Hep B Core IgM Ab Hepatitis C Antibody Blood Type Antibody Screen 05/17/17 05/17/17 09:20 13:15 WBC RBC Hgb Hct MCV MCH MCHC RDW Plt Count MPV Neut % (Auto) Lymph % (Auto) [place] % (Auto) Eos % (Auto) Baso % (Auto) Neut # (Auto) Lymph # (Auto) [place] # (Auto) Eos # (Auto) Baso # (Auto) Neutrophils % (Manual) Band Neutrophils % Lymphocytes % (Manual) Reactive Lymphs % Monocytes % (Manual) Eosinophils % (Manual) Platelet Estimate Polychromasia Anisocytosis (manual) PT INR APTT Sodium Potassium Chloride Carbon Dioxide Anion Gap BUN Creatinine Est GFR ( Amer) Est GFR (Non-Af Amer) Random Glucose Calcium Total Bilirubin AST ALT Alkaline Phosphatase Total Protein Albumin Globulin Albumin/Globulin Ratio Lipase Hepatitis A IgM Ab Negative Hep Bs Antigen Negative Hep B Core IgM Ab Negative Hepatitis C Antibody See replicates Blood Type A POSITIVE Antibody Screen Negative Attending/Attestation - Attestation I have personally seen and examined this patient.: Yes I have fully participated in the care of the patient.: Yes I have reviewed all pertinent clinical information: Yes Notes (Text): Patient seen, examined and case discussed with biomedical repair technician. patient recently discharged from the hospital yesterday for bronchitis and covered for pneumonia. patient reports when he arrived home in the evening he felt crampy abdominal pain, he felt abdominal distension, reports he felt shortness of breathe. He denies diarrhea, denies nausea, denies odonophagia, denies dysphagia. Patient with hx of hepatocellular carcinoma, secondary to hepatitis C, attributes to needle stick, awaiting liver transplant at [facility] in [place]. He reports he is at the stage wherein the cancer sticks out off the liver. patient reports he takes lactulose once a day and took last night. 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 Discussed case with Dr. Martin, recommend for abdominal US with flow to check for portal vein thrombosis; initial Abdominal US completed without flow. Patient ordered for obstructive series to rule out small bowel obstruction. Note: General: AAO X3, no acute distress, speaks in ukrainian, patient very hunger eating on exam HEENT: no scleral icterus Abdome: soft, belly is noticeably distended. soft, nontender, distended + gas, unable to appreciate fluid wave, no caput medasue Chest: S1, S2, Regular pulse Lungs; Good air exchange except at the bases, no rales appreciated Skin: no jaundice, no sclera icterus, mass over left side of chest Extremities: no cyanosis, no clubbing, no edema b/l LE Assessment/Plan 1) Abdominal Pain * +Tympanic-->gas on my exam; diffuse * Patient reports passing flatus and normal bowel movements * NPO * Order for Obstructive Series r/o small bowel obstruction (risk factor: cancer) * Simethicone 80mg PO Q6H PRN gas pains 2) Hx Hepatocellular Carcinoma Hx Hepatitis C Hx Liver Cirrhosis Transaminitis * S/P Resection * Held lactulose 20mg PO daily per Dr. Martin; start Rifamxin 550mg PO BID * Abdominal US: Cirrhotic Liver, minimal ascites * Reorder abdominal US w duplex to rule out portal vein thrombosis * Becareful with medications; hepatic impairment * awaiting liver transplant at [facility] 3) Hx HTN * Resumed metoprolol 25mg PO daily 4) Hx Pacemaker for prior Mobitz Type 2 5) Prophylactic Measures * GI: Protonix 20mg PO daily * DVT PPX: Lovenox 40mg SC daily Patient admitted under hospitalist service. Change service to primary attending Dr. Martin. Case discussed with PMD.
[2017-05-17] MEDS ORDERED: Promethazine 6.25 MG/5 ML CUP PO PRN (11:24)
--- NOTE | 2017-05-17 11:50 | RAD ---
HISTORY: right pleural effusion; compare to study 05/11/17 COMPARISON: Chest radiograph dated 05/17/2017 TECHNIQUE: Chest PA and lateral FINDINGS: LUNGS: Right basilar atelectasis. PLEURA: Small right pleural effusion. No pneumothorax apparent. CARDIOVASCULAR: Left subclavian access single lead pacemaker redemonstrated. Atherosclerotic aortic calcifications. Cardiomediastinal silhouette unchanged. OSSEOUS STRUCTURES: Unchanged. VISUALIZED UPPER ABDOMEN: Normal. OTHER FINDINGS: None. IMPRESSION: Small left pleural effusion.
[2017-05-17 13:58] VITALS: RESP 20
[2017-05-17 14:09] LABS: HEPATITIS B SURFACE AG Negative (NEGATIVE)
[2017-05-17 14:15] LABS: HEPATITIS A IGM NEGATIVE (NEGATIVE); HEPATITIS B CORE AB NEGATIVE (NEGATIVE)
--- NOTE | 2017-05-17 14:38 | US ---
HISTORY: transaminitis, elevated t.bili, ascites COMPARISON: None. TECHNIQUE: Sonographic evaluation of the abdomen. FINDINGS: LIVER: Measures 12.1 cm. Nodular contour. Increased echogenicity of the liver parenchyma. No mass. No intrahepatic bile duct dilatation. GALLBLADDER: Thick-walled. No gallstones. COMMON BILE DUCT: Measures 6 mm. No stones. No dilatation. PANCREAS: Not well-visualized RIGHT KIDNEY: Measures 12.4 x 6 4 x 5.9cm. Normal echogenicity. No calculus, mass, or hydronephrosis. LEFT KIDNEY: Measures 12.5 x 6.3 x 6.1cm. Normal echogenicity. No calculus, mass, or hydronephrosis. SPLEEN: Normal in size and contour. No mass. AORTA: No aneurysmal dilatation. IVC: Unremarkable. OTHER FINDINGS: Small amount of ascites. IMPRESSION: Hepatic cirrhosis with small amount of ascites. Gallbladder wall thickening is likely reactive.
[2017-05-17] MEDS ORDERED: Simethicone 80 mg Chewtab PO ONE (15:00)
[2017-05-17] MEDS ORDERED: Albuterol-Ipratrop 3 mg / 0.5 (3 ml) UD INH PRN (15:11)
[2017-05-17] MEDS: Metoprolol Succinate 25 mg XL Tab PO SCH (16:58)
[2017-05-17] MEDS: Simethicone 80 mg Chewtab PO PRN (21:09)
[2017-05-18 07:51] LABS: INR 1.6; PROTHROMBIN TIME 18.5 SECONDS (9.7-12.2)
[2017-05-18 07:52] LABS: BASO % 0.8 % (0.0-2.0); EOS # 0.1 K/uL (0.0-0.7); EOS % 2.5 % (0.0-4.0); HEMOGLOBIN 13.4 g/dL (12.0-18.0); LYMPH # 0.4 K/uL (1.0-4.3); LYMPH % 8.5 % (20.0-40.0); MEAN CELL VOLUME 98.5 fL (80.0-94.0); MEAN CORPUSCULAR HGB CONC 34.5 g/dL (33.0-37.0); MEAN PLATELET VOLUME 8.6 fL (7.2-11.7); MONO # 0.6 K/uL (0.0-0.8); MONO % 12.2 % (0.0-10.0); NEUT # 3.5 K/uL (1.8-7.0); RBC 3.95 Mil/uL (4.40-5.90); RED CELL DISTRIBUTION WIDTH 14.3 % (11.5-14.5); WHITE BLOOD COUNT 4.6 K/uL (4.8-10.8)
[2017-05-18 08:04] LABS: PLATELET COUNT 103 K/uL (130-400)
[2017-05-18 08:13] LABS: ALB/GLOB RATIO 0.8 (1.0-2.1); ALBUMIN 2.6 g/dL (3.5-5.0); ALT/SGPT 63 U/L (21-72); AST/SGOT 63 U/L (17-59); BLOOD UREA NITROGEN 13 mg/dL (9-20); CALCIUM 7.5 mg/dl (8.6-10.4); GFR AFRICAN-AMERICAN > 60; GFR NON-AFRICAN AMERICAN > 60; MAGNESIUM 2.2 mg/dL (1.6-2.3)
[2017-05-18 09:15] LABS: EOSINOPHIL 1 % (0-4); LYMPHOCYTE 9 % (20-40); MONOCYTE 11 % (0-10); NEUTROPHIL 79 % (50-75); PLATELET ESTIMATE SLIGHTLY DECREASED (NORMAL); TOTAL CELLS COUNTED 100
[2017-05-18 09:16] LABS: ANISOCYTOSIS SLIGHT; HYPOCHROMIC SLIGHT; POIKILOCYTOSIS SLIGHT
[2017-05-18] MEDS: Metoprolol Succinate 25 mg XL Tab PO SCH (09:21)
[2017-05-18] MEDS: Pantoprazole 20 mg EC Tab PO SCH (09:22)
[2017-05-18] MEDS ORDERED: Enoxaparin 40 mg Syringe SC SCH (10:00)
[2017-05-18 10:01] LABS: HEPATITIS C ANTIBODY REACTIVE (NEGATIVE)
--- NOTE | 2017-05-18 16:28 | RAD ---
PROCEDURE: Radiographs of the chest and abdomen (obstructive series) HISTORY: rule out SBO; hx of HCC COMPARISON: Chest radiograph dated 05/17/2017 ; CT scan of the abdomen dated 04/05/2014. TECHNIQUE: AP radiograph of the chest, with upright and supine radiographs of the abdomen. FINDINGS: CHEST: Lungs: Pulmonary vascular congestion. Right basilar atelectasis Cardiovascular: Left subclavian access single lead pacemaker redemonstrated. Atherosclerotic aortic calcifications. Cardiomediastinal silhouette stably enlarged. Pleura: Elevation of the right hemidiaphragm. Small right pleural effusion. No pneumothorax. Other findings: None. ABDOMEN AND PELVIS: Bowel: Unremarkable bowel gas pattern. No evidence of mechanical obstruction. Free air: None. Bones: Unremarkable. Other findings: None. IMPRESSION: Small right pleural effusion. No evidence of mechanical bowel obstruction.
[2017-05-18] MEDS: Simethicone 80 mg Chewtab PO PRN (22:02)
--- NOTE | 2017-05-18 22:20 | CP.PCM.PN ---
Subjective - Date & Time of Evaluation Date of Evaluation: 05/18/17 Time of Evaluation: 22:19 - Subjective Subjective: pt admitted to the hospital with acute abdominal pain. Tests are negative. Today he is feeling better. Abdominal distention noted, but less. No tenderness noted. Vital signs reviewed No neck vein distention noted Chest good air entry bilaterally, no wheezing or rales noted CVS regular heart sound, no murmur noted Abdomen soft, nontender. Extremities no pedal edema CREDIT ANALYST alert awake oriented -3, no functional neurological deficit Patient is currently stable. Labs ordered tomorrow. Possible discharge plan 66-year-old male with a history of liver disease, liver cancer, cirrhosis Patient also has hepatitis C. labs will f/u Objective - Vital Signs/Intake and Output Vital Signs (last 24 hours): Temp Pulse Resp BP Pulse Ox 98.8 F 75 20 125/78 96 05/18/17 16:00 05/18/17 16:00 05/18/17 16:00 05/18/17 16:00 05/18/17 16:00 Intake and Output: 05/18/17 05/19/17 18:59 06:59 Intake Total 400 Balance 400 - Medications Medications: Current Medications Albuterol/Ipratropium (Duoneb 3 Mg/0.5 Mg (3 Ml) Ud) 3 ml INH RQ6 PRN PRN Reason: Wheezing Last Admin: 05/17/17 21:28 Dose: 3 ml Metoprolol Succinate (Toprol Xl) 25 mg PO DAILY [facility] Last Admin: 05/18/17 09:21 Dose: 25 mg Pantoprazole Sodium (Protonix Ec Tab) 20 mg PO DAILY [facility] Last Admin: 05/18/17 09:22 Dose: 20 mg Rifaximin (Xifaxan) 550 mg PO BID [facility] Last Admin: 05/18/17 17:34 Dose: 550 mg Simethicone (Mylicon Chew Tab) 80 mg PO Q6H PRN PRN Reason: GI distress Last Admin: 05/18/17 22:02 Dose: 80 mg - Labs Labs: 05/18/17 07:40 05/18/17 07:40 PT 18.5 SECONDS (9.7-12.2) H 05/18/17 07:40 INR 1.6 05/18/17 07:40 APTT 30 SECONDS (21-34) 05/17/17 09:20
[2017-05-19 07:11] LABS: INR 1.5; PROTHROMBIN TIME 17.3 SECONDS (9.7-12.2)
[2017-05-19 07:13] LABS: ALB/GLOB RATIO 0.7 (1.0-2.1); ALBUMIN 2.5 g/dL (3.5-5.0); ALT/SGPT 60 U/L (21-72); AST/SGOT 57 U/L (17-59); BILIRUBIN,DIRECT 0.6 mg/dL (0.0-0.4); BLOOD UREA NITROGEN 15 mg/dL (9-20); CALCIUM 7.8 mg/dl (8.6-10.4); GAMMA GLUTAMYL TRANSPEPTIDASE 213 U/L (8-78); GFR AFRICAN-AMERICAN > 60; GFR NON-AFRICAN AMERICAN > 60
[2017-05-19 07:16] LABS: BASO % 0.7 % (0.0-2.0); EOS # 0.1 K/uL (0.0-0.7); EOS % 3.6 % (0.0-4.0); HEMOGLOBIN 13.2 g/dL (12.0-18.0); LYMPH # 0.3 K/uL (1.0-4.3); LYMPH % 8.2 % (20.0-40.0); MEAN CELL VOLUME 98.4 fL (80.0-94.0); MEAN CORPUSCULAR HGB CONC 34.5 g/dL (33.0-37.0); MEAN PLATELET VOLUME 8.6 fL (7.2-11.7); MONO # 0.6 K/uL (0.0-0.8); MONO % 14.6 % (0.0-10.0); NEUT # 2.9 K/uL (1.8-7.0); NEUT % 72.9 % (50.0-75.0); PLATELET COUNT 103 K/uL (130-400); RBC 3.88 Mil/uL (4.40-5.90); RED CELL DISTRIBUTION WIDTH 14.3 % (11.5-14.5)
[2017-05-19 08:27] VITALS: O2SAT 96
[2017-05-19 08:59] LABS: BANDS 1 % (0-2); EOSINOPHIL 5 % (0-4); LYMPHOCYTE 6 % (20-40); MONOCYTE 12 % (0-10); NEUTROPHIL 73 % (50-75); PLATELET ESTIMATE SLIGHTLY DECREASED (NORMAL); REACTIVE LYMPHOCYTES 3 % (0-0); TOTAL CELLS COUNTED 100
[2017-05-19] MEDS: Metoprolol Succinate 25 mg XL Tab PO SCH (10:05)
[2017-05-19] MEDS: Pantoprazole 20 mg EC Tab PO SCH (10:05)
[2017-05-19 16:01] VITALS: BP 125/77; PULSE 78; TEMP 98.6
--- NOTE | 2017-05-19 17:59 | CP.PCM.PN ---
Subjective - Date & Time of Evaluation Date of Evaluation: 05/19/17 Time of Evaluation: 11:00 - Subjective Subjective: Alert and orientedx3, no acute distress, no vomiting. Objective - Vital Signs/Intake and Output Vital Signs (last 24 hours): Temp Pulse Resp BP Pulse Ox 98.6 F 78 20 125/77 96 05/19/17 16:00 05/19/17 16:00 05/19/17 16:00 05/19/17 16:00 05/19/17 16:00 Intake and Output: 05/19/17 05/19/17 06:59 18:59 Intake Total 550 Balance 550 - Labs Labs: 05/19/17 06:51 05/19/17 06:51 PT 17.3 SECONDS (9.7-12.2) H 05/19/17 06:51 INR 1.5 05/19/17 06:51 APTT 32 SECONDS (21-34) 05/19/17 06:51 Assessment and Plan - Assessment and Plan (Free Text) Assessment: Patient admitted with abdominal pain, liver cirrhosis, seen and examined. Alert and orientedx3, no acute ditention or pain in the stomach, ambulating well. Discussed with DR Martin, plan to discharge home today. Advised to follow up with PMD in 1 week. Patient is waiting for liver transplant.
== END 2017-05-19 17:25 | disposition home or self-care (01) | DRG 391 ==
LOC: C.ER 07:30 → C.9E 10:41 → C.3T 10:59
PROVIDERS: ADMIT Internal Medicine; ATTEND Internal Medicine
DX: R10.9 Unspecified abdominal pain (principal); J18.9 Pneumonia, unspecified organism; I10 Essential (primary) hypertension; Z95.0 Presence of cardiac pacemaker; Z87.01 Personal history of pneumonia (recurrent); Z85.05 Personal history of malignant neoplasm of liver

== ENCOUNTER 2017-05-28 09:15 | Inpatient (IN) | payer BC ==
[2017-05-28 09:15] VITALS: BMI 25.7
[2017-05-28 10:24] LABS: BASO % 0.6 % (0.0-2.0); EOS % 0.7 % (0.0-4.0); HEMOGLOBIN 13.1 g/dL (12.0-18.0); LYMPH # 0.3 K/uL (1.0-4.3); LYMPH % 8.5 % (20.0-40.0); MEAN CELL VOLUME 98.1 fL (80.0-94.0); MEAN CORPUSCULAR HEMOGLOBIN 33.6 pg (27.0-31.0); MEAN CORPUSCULAR HGB CONC 34.3 g/dL (33.0-37.0); MEAN PLATELET VOLUME 9.3 fL (7.2-11.7); MONO # 0.4 K/uL (0.0-0.8); MONO % 11.2 % (0.0-10.0); NEUT # 3.1 K/uL (1.8-7.0); NRBC % 0.1 % (0.0-2.0); PLATELET COUNT 103 K/uL (130-400); RED CELL DISTRIBUTION WIDTH 14.5 % (11.5-14.5); WHITE BLOOD COUNT 3.9 K/uL (4.8-10.8)
--- NOTE | 2017-05-28 10:35 | C.PDOC ---
History Of Present Illness 66 year old male with PMHx of liver cancer presents to the ED for evaluation of ascites. Patient states last night he was restless and had difficulty catching his breath due to his abdomen being distended. Patient was supposed to see Dr. Fitzgerald today for an abdominal tap. Patient denies fever, chills, nausea, vomit , diarrhea, CP, back pain. Time Seen by Provider: 05/28/17 09:46 Chief Complaint (Nursing): Abdominal Pain History Per: Patient History/Exam Limitations: no limitations Onset/Duration Of Symptoms: Days Current Symptoms Are (Timing): Still Present Location Of Pain/Discomfort: Diffuse Radiation Of Pain To:: None Quality Of Discomfort: "Pain" Exacerbating Factors: None Recent travel outside of the [place]: No Additional History Per: Patient Past Medical History Reviewed: Historical Data, Nursing Documentation, Vital Signs Vital Signs: Last Vital Signs Temp 98.4 F 05/28/17 15:22 Pulse 85 05/28/17 15:22 Resp 20 05/28/17 15:22 BP 131/81 05/28/17 15:22 Pulse Ox 97 05/28/17 15:22 - Medical History PMH: Cardia Arrhythmia, HTN, Pneumonia Surgical History: Pacemaker - [facility] Procedures INCIS W REM OF FORIEGN BODY OR DEV FROM SKIN & SUBCUT TISSUE (12/22/12) INITIAL INSERT TRANS LEADS INTO [employer] (01/10/13) INITIAL INSERTION OF DUAL-CHAMBER DEVICE (01/10/13) REVISION OR RELOCATION OF CARDIAC DEVICE POCKET (10/13/12) Family History: States: No Known Family Hx - Social History Hx Tobacco Use: No Hx Alcohol Use: No Hx Substance Use: Yes (LAST USED LAST NIGHT) - Immunization History Hx Tetanus Toxoid Vaccination: No Hx Influenza Vaccination: Yes Hx Pneumococcal Vaccination: Yes Review Of Systems Constitutional: Negative for: Fever, Chills Cardiovascular: Negative for: Chest Pain Respiratory: Negative for: Shortness of Breath Gastrointestinal: Positive for: Abdominal Pain. Negative for: Nausea, Vomiting Musculoskeletal: Negative for: Back Pain Skin: Negative for: Rash Neurological: Negative for: Weakness, Numbness Physical Exam - Physical Exam Appears: Non-toxic, No Acute Distress Skin: Normal Color, Warm, Dry, No Rash Head: Atraumatic, Normacephalic Eye(s): bilateral: Normal Inspection, PERRL, EOMI Nose: No Discharge Oral Mucosa: Moist Neck: Normal ROM, Supple Chest: Symmetrical Cardiovascular: Rhythm Regular, No Murmur Respiratory: Normal Breath Sounds, No Rales, No Rhonchi, No Wheezing Gastrointestinal/Abdominal: Soft, Tenderness (diffusely), Distention (moderate) , No Guarding, No Rebound Back: Normal Inspection, No CVA Tenderness Extremity: Normal ROM, No Tenderness, No Swelling Neurological/Psych: Oriented x3, Normal Motor, Normal Sensation Gait: Steady ED Course And Treatment - Laboratory Results Result Diagrams: 05/28/17 10:19 05/28/17 10:19 O2 Sat by Pulse Oximetry: 97 (On RA) Pulse Ox Interpretation: Normal Medical Decision Making Medical Decision Making: Plan: * Labs * CXR The case was discussed with Dr. Fitzgerald who agrees to consult on the patient. The case was discussed with Dr. Martin (PMD) who agrees to admit the patient and requests to have IR do the paracentesis. 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 - Scribe Statement The provider has reviewed the documentation as recorded by the Scribe Claudio Trinh All medical record entries made by the Scribe were at my direction and personally dictated by me. I have reviewed the chart and agree that the record accurately reflects my personal performance of the history, physical exam, medical decision making, and the department course for this patient. I have also personally directed, reviewed, and agree with the discharge instructions and disposition.
[2017-05-28 10:36] LABS: INR 1.5; PROTHROMBIN TIME 17.1 SECONDS (9.7-12.2)
[2017-05-28 10:44] LABS: ALB/GLOB RATIO 0.7 (1.0-2.1); ALT/SGPT 99 U/L (21-72); AST/SGOT 122 U/L (17-59); BLOOD UREA NITROGEN 10 mg/dL (9-20); GFR AFRICAN-AMERICAN > 60; GFR NON-AFRICAN AMERICAN > 60
[2017-05-28 11:00] LABS: BASOPHIL 1 % (0-2); LYMPHOCYTE 4 % (20-40); MONOCYTE 9 % (0-10); NEUTROPHIL 86 % (50-75); PLATELET ESTIMATE SLIGHTLY DECREASED (NORMAL); TOTAL CELLS COUNTED 100
[2017-05-28] MEDS ORDERED: Morphine 4 MG/ML VIAL ONE (11:14)
--- NOTE | 2017-05-28 11:40 | RAD ---
Chest, one view Indication: Shortness of breath Comparison: Chest x-ray performed 05/17/17, CTA chest performed 05/11/17 Findings: Partially obscured cardiomediastinal silhouette. Single lead left-sided pacemaker. Elevation of the right hemidiaphragm. Mild bibasilar atelectasis/infiltrates. No significant pleural effusion. No definite pneumothorax. Please note that chest x-ray has limited sensitivity for the detection of pulmonary masses. Degenerative changes of the spine. Impression: Mild bibasilar atelectasis/infiltrates.
--- NOTE | 2017-05-28 12:52 | PCM.SURG1 ---
Surgeon's Initial Post Op Note - Surgeon's Notes Surgeon: Juan Shore MD Nanofabrication Specialist: NONE Type of Anesthesia: Local Pre-Operative Diagnosis: Ascites Operative Findings: US showed a very small amount of ascites Post-Operative Diagnosis: Ascites Operation Performed: US guided paracentesis Specimen/Specimens Removed: 600 cc of straw colored fluid Estimated Blood Loss: EBL {In ML}: 2 Blood Products Given: N/A Drains Used: No Drains Post-Op Condition: Fair Date of Surgery/Procedure: 05/28/17 Time of Surgery/Procedure: 12:50
[2017-05-28 13:51] LABS: BODY FLUID TYPE PERITONEAL/ASCITES
[2017-05-28 14:42] LABS: BF GROSS APPEARANCE SL CLOUDY (CLEAR)
[2017-05-28 14:43] LABS: BODY FLUID MONO/MACROPHAGE 5 % (0-0); BODY FLUID TOTAL COUNT 100 (0-0)
--- NOTE | 2017-05-28 15:06 | CP.PCM.CON ---
History of Present Illness - History of Present Illness History of Present Illness: This is a 66 year old man with hepatitis C (treated), hepatocellular carcinoma, and recent increase in abdominal distention. Patient has a history of hepatitis C since 2001. He was treated with Pegasys and i 2013. In [place] [address], he had a liver resection for hepatoma. A second leion in the right lobe of the liver, segment 6, was dianosed in May,. Additional lesions were found in segment 8 in March,. On a scan done in January,, he had lesions in segment 7 and segment 8 and He had a trial of chemotherapy but could not tolerate it and then was given Y90 beads. He was seen in the office 05/26/17 with complaints of cough, wheezing, upper abdominal discomfort and increasing abdominal girth. He denies having nasuea, vomiting, weight loss, difficulty swallowing and heartburn. He denies having constipation and rectal bleeding. Blood work showed TBILI 3.3, ALKP 190, AST 102, ALT 82. The last colonsocpy 10/23/2016 showed three polyps up to 15 mm in size, all tubular adenomas. EGD 10/23/16 showed hiatal hernia and nonerosive gastritis. Review of Systems - Constitutional Constitutional: absent: Chills, Fever - Cardiovascular Cardiovascular: absent: Chest Pain - Respiratory Respiratory: Cough, Wheezing - Gastrointestinal Gastrointestinal: Abdominal Pain, Change in Stool Character. absent: Constipation, Dysphagia, Heartburn, Hematochezia, Nausea, Vomiting Additional comments: White stools Past Patient History - Past Medical History & Family History Past Medical History?: Yes - Past Social History Smoking Status: Never Smoked - CARDIAC Hx Cardia Arrhythmia: Yes Hx Hypertension: Yes Hx Pacemaker: Yes - PULMONARY Hx Pneumonia: Yes - HEENT Hx Cataracts: Yes (Removed in 2013) - HEMATOLOGICAL/ONCOLOGICAL Hx Blood Disorders: Yes Hx Cancer: Yes (Liver) Hx Chemotherapy: Yes (2016) Other/Comment: liver cancer-. partial removal of the liver 3 years ago - MUSCULOSKELETAL/RHEUMATOLOGICAL Hx Falls: No - PSYCHIATRIC Hx Substance Use: Yes (LAST USED LAST NIGHT) - SURGICAL HISTORY Hx Surgeries: Yes Other/Comment: Liver surgery.- partail removal - ANESTHESIA Hx Anesthesia: Yes Hx Anesthesia Reactions: Yes Meds Allergies/Adverse Reactions: Allergies Allergy/AdvReac Type Severity Reaction Status Date / Time propofol Allergy Verified 05/28/17 09:31 - Medications Medications: Current Medications Metoprolol Succinate (Toprol Xl) 25 mg PO DAILY [facility] Pantoprazole Sodium (Protonix Ec Tab) 40 mg PO DAILY [facility] Physical Exam - Constitutional Appears: In Acute Distress Additional comments: Mild respiratory distress - Head Exam Head Exam: ATRAUMATIC, NORMOCEPHALIC - Eye Exam Eye Exam: EOMI, PERRL - Neck Exam Neck exam: Negative for: Lymphadenopathy, Thyromegaly - Respiratory Exam Respiratory Exam: Decreased Breath Sounds. absent: Rales, Rhonchi, Wheezes - Cardiovascular Exam Cardiovascular Exam: REGULAR RHYTHM, +S1, +S2. absent: Gallop, Rubs, Systolic Murmur - GI/Abdominal Exam GI & Abdominal Exam: Normal Bowel Sounds, Soft. absent: Mass, Organomegaly, Tenderness - Rectal Exam Rectal Exam: Deferred - Extremities Exam Extremities exam: Negative for: calf tenderness, pedal edema Results - Vital Signs Recent Vital Signs: Last Vital Signs Temp 98.0 F 05/28/17 13:59 Pulse 84 05/28/17 13:59 Resp 20 05/28/17 13:59 BP 128/72 05/28/17 13:59 Pulse Ox 97 05/28/17 13:59 - Labs Result Diagrams: 05/29/17 06:11 05/29/17 06:11 Labs: Laboratory Results - last 24 hr 05/28/17 05/28/17 05/28/17 10:19 10:19 10:19 WBC 3.9 L RBC 3.90 L Hgb 13.1 Hct 38.2 MCV 98.1 H MCH 33.6 H MCHC 34.3 RDW 14.5 Plt Count 103 L MPV 9.3 Neut % (Auto) 79.0 H Lymph % (Auto) 8.5 L [place] % (Auto) 11.2 H Eos % (Auto) 0.7 Baso % (Auto) 0.6 Neut # (Auto) 3.1 Lymph # (Auto) 0.3 L [place] # (Auto) 0.4 Eos # (Auto) 0.0 Baso # (Auto) 0.0 Neutrophils % (Manual) 86 H Lymphocytes % (Manual) 4 L Monocytes % (Manual) 9 Basophils % (Manual) 1 Platelet Estimate Slightly decreased L RBC Morphology Normal PT 17.1 H INR 1.5 APTT 33 Sodium 138 Potassium 3.5 L Chloride 102 Carbon Dioxide 27 Anion Gap 12 BUN 10 Creatinine 0.6 L Est GFR ( Amer) > 60 Est GFR (Non-Af Amer) > 60 Random Glucose 156 H Calcium 8.0 L Total Bilirubin 3.5 H AST 122 H D ALT 99 H D Alkaline Phosphatase 181 H D Total Protein 7.3 Albumin 3.0 L Globulin 4.3 H Albumin/Globulin Ratio 0.7 L Fluid Source Fluid Appearance Fluid WBC Fluid RBC Fluid Tot Cell Count Fluid Neutrophils Fluid Lymphocytes Fld Monocyte/Macrophag Fluid Comment Blood Type Antibody Screen 05/28/17 05/28/17 10:19 13:50 WBC RBC Hgb Hct MCV MCH MCHC RDW Plt Count MPV Neut % (Auto) Lymph % (Auto) [place] % (Auto) Eos % (Auto) Baso % (Auto) Neut # (Auto) Lymph # (Auto) [place] # (Auto) Eos # (Auto) Baso # (Auto) Neutrophils % (Manual) Lymphocytes % (Manual) Monocytes % (Manual) Basophils % (Manual) Platelet Estimate RBC Morphology PT INR APTT Sodium Potassium Chloride Carbon Dioxide Anion Gap BUN Creatinine Est GFR ( Amer) Est GFR (Non-Af Amer) Random Glucose Calcium Total Bilirubin AST ALT Alkaline Phosphatase Total Protein Albumin Globulin Albumin/Globulin Ratio Fluid Source Peritoneal/ascites Fluid Appearance Sl cloudy Fluid WBC 390.0 H Fluid RBC 1285.0 H Fluid Tot Cell Count 100 H Fluid Neutrophils 25.0 H Fluid Lymphocytes 69.0 H Fld Monocyte/Macrophag 5 H Fluid Comment Blood Type A POSITIVE Antibody Screen Negative Assessment & Plan (1) Ascites Assessment and Plan: Patient has known cirrhosis and hepatocellular carcinoma. However, he has never had ascites. Paracentesis has been arranged for today. Will await results of the ascitic fluid analysis. Status: Acute
--- NOTE | 2017-05-28 20:03 | CP.PCM.HP ---
History of Present Illness - History of Present Illness History of Present Illness: CC: patient admitted with sudden onset of abdominal pain. History of present illness: 66-year-old male with a history of multiple medical problems including history of hepatoma, liver cirrhosis, treated Hep c, status post a resection of the partial liver, radiofrequency ablation, hypertension, SVT, status post ablation and pacemaker. patient was doing well until recently. he was admitted one month ago with bronchitis and treated. but since 3 weeks his abd started to increase in girth and associated with abd discomfort. I saw him in the office and he was also seen by in the office for eval. but he came to ED with increasing pain and distension. recently admitted with pneumonia, sent home after treatment. Past medical history: Hypertension, SVT, status post ablation, liver cirrhosis, hepatocellular carcinoma, status post resection of tumor Surgical history: Hemorrhoidectomy, radiofrequency ablation of the liver tumor, partial resection of the liver, pacemaker placement. No known drug allergy Family history: Father and mother of natural causes. Father had a history of pulmonary embolism, mother had a history of heart failure. Social history: Former smoker. Quit many years ago. No alcoholic abuse. 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 he under went paracentesis fluid analysis pending Assessment and recommendation: 66-year-old male with history of hypertension,, liver cirrhosis, hepatocellular carcinoma, status post resection of the partial liver, radiofrequency ablation, SVT, status post ablation and pacemaker. patient admitted with possible acute abdominal distention. likley ascitis worsening and liver cirrosis worsening f/o SBP pt is seeing at [facility] for liver [facility] GI eval fluid eval f/u diuretics will f/u Present on Admission - Present on Admission Any Indicators Present on Admission: No History of DVT/PE: No History of Uncontrolled Diabetes: No Urinary Catheter: No Decubitus Ulcer Present: No Past Patient History - Past Medical History & Family History Past Medical History?: Yes - Past Social History Smoking Status: Never Smoked - CARDIAC Hx Cardia Arrhythmia: Yes Hx Hypertension: Yes Hx Pacemaker: Yes - PULMONARY Hx Pneumonia: Yes - HEENT Hx Cataracts: Yes (Removed in 2013) - HEMATOLOGICAL/ONCOLOGICAL Hx Blood Disorders: Yes Hx Cancer: Yes (Liver) Hx Chemotherapy: Yes (2016) Other/Comment: liver cancer-. partial removal of the liver 3 years ago - MUSCULOSKELETAL/RHEUMATOLOGICAL Hx Falls: No - PSYCHIATRIC Hx Substance Use: Yes (LAST USED LAST NIGHT) - SURGICAL HISTORY Hx Surgeries: Yes Other/Comment: Liver surgery.- partail removal - ANESTHESIA Hx Anesthesia: Yes Hx Anesthesia Reactions: Yes Meds Allergies/Adverse Reactions: Allergies Allergy/AdvReac Type Severity Reaction Status Date / Time propofol Allergy Verified 05/28/17 09:31 Results - Vital Signs Recent Vital Signs: Last Vital Signs Temp 98.4 F 05/28/17 15:22 Pulse 85 05/28/17 15:22 Resp 20 05/28/17 15:22 BP 131/81 05/28/17 15:22 Pulse Ox 97 05/28/17 17:41 - Labs Result Diagrams: 05/28/17 10:19 05/28/17 10:19 Labs: Laboratory Results - last 24 hr 05/28/17 05/28/17 05/28/17 10:19 10:19 10:19 WBC 3.9 L RBC 3.90 L Hgb 13.1 Hct 38.2 MCV 98.1 H MCH 33.6 H MCHC 34.3 RDW 14.5 Plt Count 103 L MPV 9.3 Neut % (Auto) 79.0 H Lymph % (Auto) 8.5 L [place] % (Auto) 11.2 H Eos % (Auto) 0.7 Baso % (Auto) 0.6 Neut # (Auto) 3.1 Lymph # (Auto) 0.3 L [place] # (Auto) 0.4 Eos # (Auto) 0.0 Baso # (Auto) 0.0 Neutrophils % (Manual) 86 H Lymphocytes % (Manual) 4 L Monocytes % (Manual) 9 Basophils % (Manual) 1 Platelet Estimate Slightly decreased L RBC Morphology Normal PT 17.1 H INR 1.5 APTT 33 Sodium 138 Potassium 3.5 L Chloride 102 Carbon Dioxide 27 Anion Gap 12 BUN 10 Creatinine 0.6 L Est GFR ( Amer) > 60 Est GFR (Non-Af Amer) > 60 Random Glucose 156 H Calcium 8.0 L Total Bilirubin 3.5 H AST 122 H D ALT 99 H D Alkaline Phosphatase 181 H D Total Protein 7.3 Albumin 3.0 L Globulin 4.3 H Albumin/Globulin Ratio 0.7 L Fluid Source Fluid Appearance Fluid WBC Fluid RBC Fluid Tot Cell Count Fluid Neutrophils Fluid Lymphocytes Fld Monocyte/Macrophag Fluid Comment Blood Type Antibody Screen 05/28/17 05/28/17 10:19 13:50 WBC RBC Hgb Hct MCV MCH MCHC RDW Plt Count MPV Neut % (Auto) Lymph % (Auto) [place] % (Auto) Eos % (Auto) Baso % (Auto) Neut # (Auto) Lymph # (Auto) [place] # (Auto) Eos # (Auto) Baso # (Auto) Neutrophils % (Manual) Lymphocytes % (Manual) Monocytes % (Manual) Basophils % (Manual) Platelet Estimate RBC Morphology PT INR APTT Sodium Potassium Chloride Carbon Dioxide Anion Gap BUN Creatinine Est GFR ( Amer) Est GFR (Non-Af Amer) Random Glucose Calcium Total Bilirubin AST ALT Alkaline Phosphatase Total Protein Albumin Globulin Albumin/Globulin Ratio Fluid Source Peritoneal/ascites Fluid Appearance Sl cloudy Fluid WBC 390.0 H Fluid RBC 1285.0 H Fluid Tot Cell Count 100 H Fluid Neutrophils 25.0 H Fluid Lymphocytes 69.0 H Fld Monocyte/Macrophag 5 H Fluid Comment Blood Type A POSITIVE Antibody Screen Negative
[2017-05-29 06:22] LABS: BASO % 0.5 % (0.0-2.0); EOS # 0.1 K/uL (0.0-0.7); EOS % 1.8 % (0.0-4.0); HEMOGLOBIN 12.2 g/dL (12.0-18.0); LYMPH # 0.4 K/uL (1.0-4.3); MEAN CELL VOLUME 97.6 fL (80.0-94.0); MEAN CORPUSCULAR HEMOGLOBIN 33.7 pg (27.0-31.0); MEAN CORPUSCULAR HGB CONC 34.5 g/dL (33.0-37.0); MEAN PLATELET VOLUME 9.3 fL (7.2-11.7); MONO # 0.7 K/uL (0.0-0.8); MONO % 18.3 % (0.0-10.0); NEUT # 2.8 K/uL (1.8-7.0); NEUT % 70.4 % (50.0-75.0); PLATELET COUNT 90 K/uL (130-400); RBC 3.62 Mil/uL (4.40-5.90); RED CELL DISTRIBUTION WIDTH 14.4 % (11.5-14.5)
[2017-05-29 06:46] LABS: BLOOD UREA NITROGEN 7 mg/dL (9-20); CALCIUM 7.6 mg/dl (8.6-10.4); GFR AFRICAN-AMERICAN > 60; GFR NON-AFRICAN AMERICAN > 60
[2017-05-29 08:30] LABS: BASOPHIL 1 % (0-2); EOSINOPHIL 2 % (0-4); LYMPHOCYTE 9 % (20-40); MONOCYTE 14 % (0-10); NEUTROPHIL 74 % (50-75); PLATELET ESTIMATE DECREASED (NORMAL); TOTAL CELLS COUNTED 100
[2017-05-29] MEDS: Pantoprazole 40 mg EC Tab PO SCH (10:27)
[2017-05-29] MEDS: Metoprolol Succinate 25 mg XL Tab PO SCH (10:27)
--- NOTE | 2017-05-29 11:19 | US ---
Date of Procedure: 05/28/2017 PROCEDURE: Ultrasound-guided paracentesis, CPT 54886 Medications: 7 cc 1% Lidocaine HISTORY: Ascites, abdominal pain TECHNIQUE: Following informed consent , the patient was placed supine on the stretcher and the site was marked. A limited abdominal ultrasound was performed that showed a small amount of intra-abdominal fluid. Procedural time out was called and the Pt's abdomen was marked and prepped and draped in the usual sterile fashion. Ultrasound-guided large volume paracentesis performed. A total of 500 cc of straw colored fluid was removed without complication. Fluid specimen was sent for culture, sensitivity, cytology and chemistries. IMPRESSION: Ultrasound-guided paracentesis.
[2017-05-29] MEDS ORDERED: Aluminum Hydroxide/Magnesium Hydroxide Susp (30 mL) PO ONE (12:45)
[2017-05-29] MEDS ORDERED: Albuterol-Ipratrop 3 mg / 0.5 (3 ml) UD INH STA (15:19)
[2017-05-29 16:02] LABS: ABG ALLEN TEST P; ARTERIAL BLOOD GAS HCO3 17.2 mmol/L (21-28); ARTERIAL BLOOD GAS HEMOGLOBIN 7.6 g/dL (11.7-17.4); ARTERIAL BLOOD GAS O2 SAT 100.9 % (95-98); ARTERIAL BLOOD GAS PCO2 17 mm/Hg (35-45); ARTERIAL BLOOD GAS PH 7.47 (7.35-7.45); ARTERIAL BLOOD GAS PO2 187 mm/Hg (80-100); ARTERIAL BLOOD GAS TCO2 12.9 mmol/L (22-28)
--- NOTE | 2017-05-29 16:04 | RAD ---
HISTORY: SOB, RESP DISTRESS COMPARISON: May 28, 2017. FINDINGS: LUNGS: New right lower lobe infiltrate. PLEURA: No significant pleural effusion identified, no pneumothorax apparent. CARDIOVASCULAR: No radiographic findings to suggest acute or significant cardiovascular disease. Position/ configuration of pacemaker device: Satisfactory. OSSEOUS STRUCTURES: No significant abnormalities. VISUALIZED UPPER ABDOMEN: Normal. OTHER FINDINGS: None. IMPRESSION: New right lower lobe infiltrate.
--- NOTE | 2017-05-29 16:21 | CP.PCM.PN ---
Subjective - Date & Time of Evaluation Date of Evaluation: 05/29/17 Time of Evaluation: 16:21 - Subjective Subjective: PER PRIMARY RN SACHIN PT C/O SOB. I EVAL'D THE PT AND HE ADMITS TO SOB X1 HOUR BUT DID NOT TELL THE NURSE. HR REG, SINUS; LUNG SOUNDS + WHEEZING SCATTERED AND BIBASILAR RALES; + SOB, SPEAKING 4-5 WORD SENTENCES. I IMMEDIATELY NOTIFIED DR. MILLAN. ALL ORDERS DISCUSSED AND AGREED UPON WITH DR. MILLAN. CRATING AND MOVING ESTIMATOR TO NOTIFY DR. MILLAN IF THERE IS A CHANGE IN STATUS OR WORSENING S/S. NO FURTHER ORDERS. Objective - Vital Signs/Intake and Output Vital Signs (last 24 hours): Temp Pulse Resp BP Pulse Ox 98.3 F 81 20 135/82 99 05/29/17 15:38 05/29/17 15:38 05/29/17 15:38 05/29/17 15:38 05/29/17 15:38 Intake and Output: 05/29/17 05/29/17 06:59 18:59 Intake Total 240 Balance 240 - Medications Medications: Current Medications Furosemide (Lasix) 20 mg PO DAILY [facility] Last Admin: 05/29/17 10:27 Dose: 20 mg Hydroxyzine HCl (Atarax) 25 mg PO HS [facility] Ceftriaxone Sodium 1 gm/ (Sodium Chloride) 100 mls @ 100 mls/hr IVPB Q12H [facility] PRN Reason: Protocol Last Admin: 05/29/17 13:32 Dose: 100 mls/hr Lactulose (Enulose) 20 gm PO HS [facility] Last Admin: 05/28/17 22:49 Dose: 20 gm Metoprolol Succinate (Toprol Xl) 25 mg PO DAILY [facility] Last Admin: 05/29/17 10:27 Dose: 25 mg Pantoprazole Sodium (Protonix Ec Tab) 40 mg PO DAILY [facility] Last Admin: 05/29/17 10:27 Dose: 40 mg Spironolactone (Aldactone) 25 mg PO DAILY [facility] Last Admin: 05/29/17 10:27 Dose: 25 mg - Labs Labs: 05/29/17 06:11 05/29/17 06:11 PT 17.1 SECONDS (9.7-12.2) H 05/28/17 10:19 INR 1.5 05/28/17 10:19 APTT 33 SECONDS (21-34) 05/28/17 10:19
--- NOTE | 2017-05-29 17:18 | CP.PCM.PN ---
Subjective - Date & Time of Evaluation Date of Evaluation: 05/29/17 Time of Evaluation: 17:16 - Subjective Subjective: Patient is now using a CPAP machine. Appetite is poor. He denies having nausea or vomiting. He continues to complain of abdominal distention but no pain. Objective - Vital Signs/Intake and Output Vital Signs (last 24 hours): Temp Pulse Resp BP Pulse Ox 98.3 F 89 20 135/82 99 05/29/17 15:38 05/29/17 16:10 05/29/17 15:38 05/29/17 15:38 05/29/17 15:38 Intake and Output: 05/29/17 05/29/17 06:59 18:59 Intake Total 240 Balance 240 - Medications Medications: Current Medications Furosemide (Lasix) 20 mg PO DAILY [facility] Last Admin: 05/29/17 10:27 Dose: 20 mg Hydroxyzine HCl (Atarax) 25 mg PO HS [facility] Ceftriaxone Sodium 1 gm/ (Sodium Chloride) 100 mls @ 100 mls/hr IVPB Q12H [facility] PRN Reason: Protocol Last Admin: 05/29/17 13:32 Dose: 100 mls/hr Lactulose (Enulose) 20 gm PO HS [facility] Last Admin: 05/28/17 22:49 Dose: 20 gm Metoprolol Succinate (Toprol Xl) 25 mg PO DAILY [facility] Last Admin: 05/29/17 10:27 Dose: 25 mg Pantoprazole Sodium (Protonix Ec Tab) 40 mg PO DAILY [facility] Last Admin: 05/29/17 10:27 Dose: 40 mg Spironolactone (Aldactone) 25 mg PO DAILY [facility] Last Admin: 05/29/17 10:27 Dose: 25 mg - Labs Labs: 05/29/17 06:11 05/29/17 06:11 PT 17.1 SECONDS (9.7-12.2) H 05/28/17 10:19 INR 1.5 05/28/17 10:19 APTT 33 SECONDS (21-34) 05/28/17 10:19 - Constitutional Appears: No Acute Distress - Head Exam Head Exam: ATRAUMATIC, NORMOCEPHALIC - Eye Exam Eye Exam: EOMI, PERRL - Neck Exam Neck Exam: absent: Lymphadenopathy, Thyromegaly - Respiratory Exam Respiratory Exam: NORMAL BREATHING PATTERN. absent: Rales, Rhonchi, Wheezes - Cardiovascular Exam Cardiovascular Exam: REGULAR RHYTHM, +S1, +S2. absent: Rubs, Murmur - GI/Abdominal Exam GI & Abdominal Exam: Soft, Normal Bowel Sounds. absent: Tenderness, Mass, Organomegaly - Rectal Exam Rectal Exam: Deferred - Extremities Exam Extremities Exam: absent: Calf Tenderness, Pedal Edema Assessment and Plan (1) Ascites Assessment & Plan: Patient continues to complain of abdominal distention. Ascitic fluid analysis shows WBC 390 and RBC 1285, but PMN count is 98, inconsistent with SBP. Chemistry and cytology are pending. Status: Acute
[2017-05-29 17:21] LABS: HEMOGLOBIN 13.6 g/dL (12.0-18.0); MEAN CORPUSCULAR HEMOGLOBIN 33.4 pg (27.0-31.0); MEAN CORPUSCULAR HGB CONC 34.5 g/dL (33.0-37.0); MEAN PLATELET VOLUME 8.9 fL (7.2-11.7); RBC 4.07 Mil/uL (4.40-5.90); RED CELL DISTRIBUTION WIDTH 14.2 % (11.5-14.5); WHITE BLOOD COUNT 5.8 K/uL (4.8-10.8)
[2017-05-29 17:34] LABS: ALB/GLOB RATIO 0.7 (1.0-2.1); ALBUMIN 3.2 g/dL (3.5-5.0); ALT/SGPT 102 U/L (21-72); AST/SGOT 121 U/L (17-59); BLOOD UREA NITROGEN 6 mg/dL (9-20); CALCIUM 7.8 mg/dl (8.6-10.4); GFR AFRICAN-AMERICAN > 60; GFR NON-AFRICAN AMERICAN > 60
[2017-05-29] MEDS: DiphenhydrAMINE 12.5 mg/5 ml LIQ UD (5 ml) PO SCH (22:28)
[2017-05-30 07:51] LABS: BASO % 0.4 % (0.0-2.0); EOS # 0.1 K/uL (0.0-0.7); EOS % 1.9 % (0.0-4.0); HEMOGLOBIN 12.7 g/dL (12.0-18.0); LYMPH # 0.4 K/uL (1.0-4.3); MEAN CELL VOLUME 97.2 fL (80.0-94.0); MEAN CORPUSCULAR HEMOGLOBIN 33.5 pg (27.0-31.0); MEAN CORPUSCULAR HGB CONC 34.5 g/dL (33.0-37.0); MEAN PLATELET VOLUME 9.2 fL (7.2-11.7); MONO # 0.7 K/uL (0.0-0.8); MONO % 15.6 % (0.0-10.0); NEUT # 3.3 K/uL (1.8-7.0); NEUT % 74.1 % (50.0-75.0); NRBC % 0.1 % (0.0-2.0); RBC 3.78 Mil/uL (4.40-5.90); RED CELL DISTRIBUTION WIDTH 14.3 % (11.5-14.5); WHITE BLOOD COUNT 4.5 K/uL (4.8-10.8)
[2017-05-30 07:53] LABS: PLATELET COUNT 106 K/uL (130-400)
[2017-05-30 08:00] LABS: ALB/GLOB RATIO 0.7 (1.0-2.1); ALBUMIN 2.7 g/dL (3.5-5.0); ALT/SGPT 84 U/L (21-72); AST/SGOT 101 U/L (17-59); BLOOD UREA NITROGEN 8 mg/dL (9-20); CALCIUM 7.4 mg/dl (8.6-10.4); GFR AFRICAN-AMERICAN > 60; GFR NON-AFRICAN AMERICAN > 60
[2017-05-30 10:00] LABS: BANDS 1 % (0-2); LYMPHOCYTE 8 % (20-40); MONOCYTE 14 % (0-10); NEUTROPHIL 77 % (50-75); PLATELET ESTIMATE DECREASED (NORMAL); TOTAL CELLS COUNTED 100
[2017-05-30 10:01] LABS: ANISOCYTOSIS SLIGHT
--- NOTE | 2017-05-30 10:17 | CP.PCM.PN ---
Subjective - Date & Time of Evaluation Date of Evaluation: 05/30/17 Time of Evaluation: 10:14 - Subjective Subjective: Patient still complains of shortness of breath. He has not been out of bed. He denies having abdominal pain, nausea and vomiting. He has not had a bowel movement this morning. Objective - Vital Signs/Intake and Output Vital Signs (last 24 hours): Temp Pulse Resp BP Pulse Ox 98.3 F 79 20 101/71 97 05/30/17 08:53 05/30/17 08:53 05/30/17 08:53 05/30/17 08:53 05/30/17 08:53 Intake and Output: 05/30/17 05/30/17 06:59 18:59 Intake Total 500 Output Total 500 Balance 0 - Medications Medications: Current Medications Diphenhydramine HCl (Benadryl) 25 mg PO [facility] Last Admin: 05/29/17 22:28 Dose: 25 mg Furosemide (Lasix) 20 mg PO DAILY [facility] Last Admin: 05/29/17 10:27 Dose: 20 mg Ceftriaxone Sodium 1 gm/ (Sodium Chloride) 100 mls @ 100 mls/hr IVPB DAILY [facility] PRN Reason: Protocol Lactulose (Enulose) 20 gm PO [facility] Last Admin: 05/29/17 22:27 Dose: 20 gm Metoprolol Succinate (Toprol Xl) 25 mg PO DAILY [facility] Last Admin: 05/29/17 10:27 Dose: 25 mg Pantoprazole Sodium (Protonix Ec Tab) 40 mg PO DAILY [facility] Last Admin: 05/29/17 10:27 Dose: 40 mg Spironolactone (Aldactone) 25 mg PO DAILY [facility] Last Admin: 05/29/17 10:27 Dose: 25 mg - Labs Labs: 05/30/17 07:35 05/30/17 07:35 PT 17.1 SECONDS (9.7-12.2) H 05/28/17 10:19 INR 1.5 05/28/17 10:19 APTT 33 SECONDS (21-34) 05/28/17 10:19 - Constitutional Appears: No Acute Distress - Head Exam Head Exam: ATRAUMATIC, NORMOCEPHALIC - Eye Exam Eye Exam: EOMI, PERRL - Neck Exam Neck Exam: absent: Lymphadenopathy, Thyromegaly - Respiratory Exam Respiratory Exam: NORMAL BREATHING PATTERN. absent: Rales, Rhonchi, Wheezes - Cardiovascular Exam Cardiovascular Exam: REGULAR RHYTHM, +S1, +S2. absent: Gallop, Rubs, Murmur - GI/Abdominal Exam GI & Abdominal Exam: Soft, Normal Bowel Sounds. absent: Tenderness, Mass, Organomegaly - Rectal Exam Rectal Exam: Deferred - Extremities Exam Extremities Exam: Calf Tenderness, Pedal Edema Assessment and Plan (1) Ascites Assessment & Plan: Liver enzymes are stable. Will repeat PT-INR. Urine sodium is 99. Awaiting ultrasound to rule out portal vein thrombosis. Status: Acute
[2017-05-30] MEDS: Pantoprazole 40 mg EC Tab PO SCH (10:35)
[2017-05-30] MEDS: Metoprolol Succinate 25 mg XL Tab PO SCH (10:38)
--- NOTE | 2017-05-30 11:27 | RAD ---
HISTORY: obstruction COMPARISON: No prior. FINDINGS: BOWEL: Normal. No obstruction. No free air. BONES: Normal. OTHER FINDINGS: None. IMPRESSION: No active disease.
--- NOTE | 2017-05-30 12:04 | US ---
HISTORY: Portal, hepatic vein thrombosis COMPARISON: None. TECHNIQUE: Sonographic evaluation of the abdomen. FINDINGS: LIVER: Measures 17.2 cm. Heterogeneous echogenicity of the liver parenchyma. Nodular contour. Findings consistent with hepatic cirrhosis. No mass. No intrahepatic biliary dilatation. Portal vein patent and normal hepatopetal portal venous flow demonstrated. Flow demonstrated in hepatic veins. No evidence of hepatic venous thrombosis. Evaluation somewhat limited. Splenic vein demonstrated in splenic hilar region, but more proximal splenic vein could not be adequately visualized by this examination. Cannot rule out splenic venous thrombosis. Consider contrast CT 8th clinically warranted. GALLBLADDER: Mildly thickened gallbladder wall up to 5 mm. Adenomyomatosis. No cholelithiasis. COMMON BILE DUCT: Measures 8 mm. No stones. No dilatation. PANCREAS: Suboptimally visualized RIGHT KIDNEY: Measures 11.3cm. Normal echogenicity. No calculus, mass, or hydronephrosis. LEFT KIDNEY: Measures 12.8cm. Normal echogenicity. No calculus, mass, or hydronephrosis. SPLEEN: Splenomegaly. The spleen measures 15.2 cm. No focal mass. AORTA: No aneurysmal dilatation. IVC: Unremarkable. OTHER FINDINGS: Ascites. IMPRESSION: Hepatic cirrhosis. Ascites. Splenomegaly. Portal vein patent with hepatopetal portal venous flow. Only the distal splenic vein in the splenic hilar region could be adequately demonstrated. Cannot rule out more proximal splenic venous thrombosis. No evidence of hepatic venous thrombosis.
[2017-05-30 14:21] LABS: INR 1.5; PROTHROMBIN TIME 17.6 SECONDS (9.7-12.2)
[2017-05-30 14:52] LABS: GLUCOSE PERITONEAL FLUID 136 mg/dL; LDH PERITONEAL FLUID 81 U/L (<63); TOTAL PROTEIN PERITONEAL FLUID <3.0 g/dL
[2017-05-30] MEDS: DiphenhydrAMINE 12.5 mg/5 ml LIQ UD (5 ml) PO SCH (21:49)
[2017-05-31] MEDS: Metoprolol Succinate 25 mg XL Tab PO SCH (09:54)
[2017-05-31] MEDS: Pantoprazole 40 mg EC Tab PO SCH (09:54)
--- NOTE | 2017-05-31 10:35 | CP.PCM.PN ---
Subjective - Date & Time of Evaluation Date of Evaluation: 05/31/17 Time of Evaluation: 10:32 - Subjective Subjective: Patient states that the breathing is better. No new complaints. Objective - Vital Signs/Intake and Output Vital Signs (last 24 hours): Temp Pulse Resp BP Pulse Ox 97.7 F 90 18 121/76 97 05/31/17 08:00 05/31/17 08:00 05/31/17 08:00 05/31/17 09:53 05/31/17 08:00 Intake and Output: 05/31/17 05/31/17 06:59 18:59 Intake Total 400 Output Total 1150 Balance -750 - Medications Medications: Current Medications Diphenhydramine HCl (Benadryl) 25 mg PO [facility] Last Admin: 05/30/17 21:49 Dose: 25 mg Furosemide (Lasix) 20 mg PO DAILY [facility] Last Admin: 05/31/17 09:53 Dose: 20 mg Ceftriaxone Sodium 1 gm/ (Sodium Chloride) 100 mls @ 100 mls/hr IVPB DAILY [facility] PRN Reason: Protocol Last Admin: 05/31/17 09:54 Dose: 100 mls/hr Lactulose (Enulose) 20 gm PO [facility] Last Admin: 05/30/17 21:50 Dose: Not Given Metoprolol Succinate (Toprol Xl) 25 mg PO DAILY [facility] Last Admin: 05/31/17 09:54 Dose: 25 mg Pantoprazole Sodium (Protonix Ec Tab) 40 mg PO DAILY [facility] Last Admin: 05/31/17 09:54 Dose: 40 mg Spironolactone (Aldactone) 25 mg PO DAILY [facility] Last Admin: 05/31/17 09:53 Dose: 25 mg - Labs Labs: 05/30/17 07:35 05/30/17 07:35 PT 17.6 SECONDS (9.7-12.2) H 05/30/17 14:05 INR 1.5 05/30/17 14:05 APTT 33 SECONDS (21-34) 05/28/17 10:19 - Constitutional Appears: No Acute Distress - Head Exam Head Exam: ATRAUMATIC, NORMOCEPHALIC - Eye Exam Eye Exam: EOMI, PERRL - Neck Exam Neck Exam: absent: Lymphadenopathy, Thyromegaly - Respiratory Exam Respiratory Exam: NORMAL BREATHING PATTERN. absent: Rales, Rhonchi, Wheezes - Cardiovascular Exam Cardiovascular Exam: REGULAR RHYTHM, +S1, +S2. absent: Gallop, Rubs, Murmur - GI/Abdominal Exam GI & Abdominal Exam: Distended, Soft, Normal Bowel Sounds. absent: Tenderness, Mass, Organomegaly - Rectal Exam Rectal Exam: Deferred - Extremities Exam Extremities Exam: absent: Calf Tenderness, Pedal Edema Assessment and Plan (1) Ascites Assessment & Plan: MELD score is 16. Sonogram shows: cirrhosis, ascites, splenomegaly, patent portal and hepatic veins. Ascitic fluid total protein was reported as < 3.0; evidently, albumin was not done. Recommend office follow up in two weeks. Status: Acute
[2017-05-31 15:56] VITALS: BP 114/67; RESP 20; TEMP 98.4; O2SAT 96
--- NOTE | 2017-05-31 16:12 | CP.PCM.PN ---
Subjective - Date & Time of Evaluation Date of Evaluation: 05/29/17 Time of Evaluation: 16:12 Objective - Vital Signs/Intake and Output Vital Signs (last 24 hours): Temp Pulse Resp BP Pulse Ox 98.4 F 80 20 114/67 96 05/31/17 15:52 05/31/17 15:52 05/31/17 15:52 05/31/17 15:52 05/31/17 15:52 Intake and Output: 05/31/17 05/31/17 06:59 18:59 Intake Total 400 Output Total 1150 Balance -750 - Medications Medications: Current Medications Diphenhydramine HCl (Benadryl) 25 mg PO [facility] Last Admin: 05/30/17 21:49 Dose: 25 mg Furosemide (Lasix) 20 mg PO DAILY [facility] Last Admin: 05/31/17 09:53 Dose: 20 mg Ceftriaxone Sodium 1 gm/ (Sodium Chloride) 100 mls @ 100 mls/hr IVPB DAILY [facility] PRN Reason: Protocol Last Admin: 05/31/17 09:54 Dose: 100 mls/hr Lactulose (Enulose) 20 gm PO HS [facility] Last Admin: 05/30/17 21:50 Dose: Not Given Metoprolol Succinate (Toprol Xl) 25 mg PO DAILY [facility] Last Admin: 05/31/17 09:54 Dose: 25 mg Pantoprazole Sodium (Protonix Ec Tab) 40 mg PO DAILY [facility] Last Admin: 05/31/17 09:54 Dose: 40 mg Spironolactone (Aldactone) 25 mg PO DAILY [facility] Last Admin: 05/31/17 09:53 Dose: 25 mg - Labs Labs: 05/30/17 07:35 05/30/17 07:35 PT 17.6 SECONDS (9.7-12.2) H 05/30/17 14:05 INR 1.5 05/30/17 14:05 APTT 33 SECONDS (21-34) 05/28/17 10:19
--- NOTE | 2017-05-31 16:13 | CP.PCM.PN ---
Subjective - Date & Time of Evaluation Date of Evaluation: 05/30/17 Objective - Vital Signs/Intake and Output Vital Signs (last 24 hours): Temp Pulse Resp BP Pulse Ox 98.4 F 80 20 114/67 96 05/31/17 15:52 05/31/17 15:52 05/31/17 15:52 05/31/17 15:52 05/31/17 15:52 Intake and Output: 05/31/17 05/31/17 06:59 18:59 Intake Total 400 Output Total 1150 Balance -750 - Medications Medications: Current Medications Diphenhydramine HCl (Benadryl) 25 mg PO HS [facility] Last Admin: 05/30/17 21:49 Dose: 25 mg Furosemide (Lasix) 20 mg PO DAILY [facility] Last Admin: 05/31/17 09:53 Dose: 20 mg Ceftriaxone Sodium 1 gm/ (Sodium Chloride) 100 mls @ 100 mls/hr IVPB DAILY [facility] PRN Reason: Protocol Last Admin: 05/31/17 09:54 Dose: 100 mls/hr Lactulose (Enulose) 20 gm PO HS [facility] Last Admin: 05/30/17 21:50 Dose: Not Given Metoprolol Succinate (Toprol Xl) 25 mg PO DAILY [facility] Last Admin: 05/31/17 09:54 Dose: 25 mg Pantoprazole Sodium (Protonix Ec Tab) 40 mg PO DAILY [facility] Last Admin: 05/31/17 09:54 Dose: 40 mg Spironolactone (Aldactone) 25 mg PO DAILY [facility] Last Admin: 05/31/17 09:53 Dose: 25 mg - Labs Labs: 05/30/17 07:35 05/30/17 07:35 PT 17.6 SECONDS (9.7-12.2) H 05/30/17 14:05 INR 1.5 05/30/17 14:05 APTT 33 SECONDS (21-34) 05/28/17 10:19
[2017-05-31] MEDS ORDERED: Potassium Chloride 20 mEq/15 ml LIQ UD PO ONE (16:32)
[2017-05-31 16:47] VITALS: PULSE 89
--- NOTE | 2017-05-31 20:56 | CP.PCM.DIS ---
Provider - Provider Date of Admission: 05/29/17 15:58 Attending physician: Ally Martin MD Hospital Course - Lab Results Lab Results: Micro Results 05/29/17 12:37 Blood Blood Culture - Preliminary NO GROWTH AFTER 48 HOURS 05/29/17 12:37 Blood Blood Culture - Preliminary NO GROWTH AFTER 48 HOURS 05/28/17 13:16 Ascitic Fluid Gram Stain - Final 05/28/17 13:16 Ascitic Fluid Body Fluid Culture - Preliminary NO GROWTH AFTER 3 DAYS Most Recent Lab Values WBC 4.5 K/uL (4.8-10.8) L 05/30/17 07:35 RBC 3.78 Mil/uL (4.40-5.90) L 05/30/17 07:35 Hgb 12.7 g/dL (12.0-18.0) 05/30/17 07:35 Hct 36.7 % (35.0-51.0) 05/30/17 07:35 MCV 97.2 fL (80.0-94.0) H 05/30/17 07:35 MCH 33.5 pg (27.0-31.0) H 05/30/17 07:35 MCHC 34.5 g/dL (33.0-37.0) 05/30/17 07:35 RDW 14.3 % (11.5-14.5) 05/30/17 07:35 Plt Count 106 K/uL (130-400) L D 05/30/17 07:35 MPV 9.2 fL (7.2-11.7) 05/30/17 07:35 Neut % (Auto) 74.1 % (50.0-75.0) 05/30/17 07:35 Lymph % (Auto) 8.0 % (20.0-40.0) L 05/30/17 07:35 [place] % (Auto) 15.6 % (0.0-10.0) H 05/30/17 07:35 Eos % (Auto) 1.9 % (0.0-4.0) 05/30/17 07:35 Baso % (Auto) 0.4 % (0.0-2.0) 05/30/17 07:35 Neut # (Auto) 3.3 K/uL (1.8-7.0) 05/30/17 07:35 Lymph # (Auto) 0.4 K/uL (1.0-4.3) L 05/30/17 07:35 [place] # (Auto) 0.7 K/uL (0.0-0.8) 05/30/17 07:35 Eos # (Auto) 0.1 K/uL (0.0-0.7) 05/30/17 07:35 Baso # (Auto) 0.0 K/uL (0.0-0.2) 05/30/17 07:35 Neutrophils % (Manual) 77 % (50-75) H 05/30/17 07:35 Band Neutrophils % 1 % (0-2) 05/30/17 07:35 Lymphocytes % (Manual) 8 % (20-40) L 05/30/17 07:35 Monocytes % (Manual) 14 % (0-10) H 05/30/17 07:35 Eosinophils % (Manual) 2 % (0-4) 05/29/17 06:11 Basophils % (Manual) 1 % (0-2) 05/29/17 06:11 Platelet Estimate Decreased (NORMAL) L 05/30/17 07:35 RBC Morphology Normal 05/29/17 06:11 Anisocytosis (manual) Slight 05/30/17 07:35 PT 17.6 SECONDS (9.7-12.2) H 05/30/17 14:05 INR 1.5 05/30/17 14:05 APTT 33 SECONDS (21-34) 05/28/17 10:19 Puncture Site Lr 05/29/17 15:50 pCO2 17 mm/Hg (35-45) L* 05/29/17 15:50 pO2 187 mm/Hg (80-100) H 05/29/17 15:50 HCO3 17.2 mmol/L (21-28) L 05/29/17 15:50 ABG pH 7.47 (7.35-7.45) H 05/29/17 15:50 ABG Total CO2 12.9 mmol/L (22-28) L 05/29/17 15:50 ABG O2 Saturation 100.9 % (95-98) H 05/29/17 15:50 ABG Base Excess -9.9 mmol/L (-2.0-3.0) L 05/29/17 15:50 ABG Hemoglobin 7.6 g/dL (11.7-17.4) L 05/29/17 15:50 ABG Carboxyhemoglobin 2.2 % (0.5-1.5) H 05/29/17 15:50 POC ABG HHb (Measured) -0.9 % (0.0-5.0) L 05/29/17 15:50 ABG Methemoglobin 1.3 % (0.0-3.0) 05/29/17 15:50 Jonny Test P 05/29/17 15:50 Hgb O2 Saturation 97.4 % (95.0-98.0) 05/29/17 15:50 Liter Flow 4.0 05/29/17 15:50 Crit Value Called To Dr [email or web address] 05/29/17 15:50 Crit Value Called By [email or web address] 05/29/17 15:50 Crit Value Read Back Y 05/29/17 15:50 Blood Gas Notified Time 1601 05/29/17 15:50 Sodium 137 mmol/L (132-148) 05/30/17 07:35 Potassium 3.4 mmol/L (3.6-5.2) L 05/30/17 07:35 Chloride 101 mmol/L (98-107) 05/30/17 07:35 Carbon Dioxide 27 mmol/L (22-30) 05/30/17 07:35 Anion Gap 12 (10-20) 05/30/17 07:35 BUN 8 mg/dL (9-20) L 05/30/17 07:35 Creatinine 0.6 mg/dL (0.8-1.5) L 05/30/17 07:35 Est GFR ( Amer) > 60 05/30/17 07:35 Est GFR (Non-Af Amer) > 60 05/30/17 07:35 Random Glucose 102 mg/dL (75-110) 05/30/17 07:35 Calcium 7.4 mg/dl (8.6-10.4) L 05/30/17 07:35 Phosphorus 2.7 mg/dL (2.5-4.5) 05/30/17 07:35 Magnesium 1.9 mg/dL (1.6-2.3) 05/30/17 07:35 Total Bilirubin 3.4 mg/dL (0.2-1.3) H 05/30/17 07:35 AST 101 U/L (17-59) H 05/30/17 07:35 ALT 84 U/L (21-72) H 05/30/17 07:35 Alkaline Phosphatase 171 U/L (38-126) H 05/30/17 07:35 Total Creatine Kinase 60 U/L (55-170) 05/29/17 17:17 CK-MB (Mass) 0.90 ng/mL (0.0-3.38) 05/29/17 17:17 Troponin I < 0.0120 ng/mL (0.00-0.120) 05/29/17 17:17 Total Protein 6.8 g/dL (6.3-8.3) 05/30/17 07:35 Albumin 2.7 g/dL (3.5-5.0) L 05/30/17 07:35 Globulin 4.1 gm/dL (2.2-3.9) H 05/30/17 07:35 Albumin/Globulin Ratio 0.7 (1.0-2.1) L 05/30/17 07:35 Alpha Fetoprotein 3.2 ng/mL (0.0-7.5) 05/30/17 07:35 Ur Random Sodium 99 mmol/L 05/30/17 06:57 Fluid Source Peritoneal/ascites 05/28/17 13:50 Fluid Appearance Sl cloudy (CLEAR) 05/28/17 13:50 Fluid WBC 390.0 /mm3 (0.0-300.0) H 05/28/17 13:50 Fluid RBC 1285.0 /mm3 (0.0-0.0) H 05/28/17 13:50 Fluid Tot Cell Count 100 (0-0) H 05/28/17 13:50 Fluid Neutrophils 25.0 % (0-0) H 05/28/17 13:50 Fluid Lymphocytes 69.0 % (0-0) H 05/28/17 13:50 Fld Monocyte/Macrophag 5 % (0-0) H 05/28/17 13:50 Fluid Comment 05/28/17 13:50 Peritoneal Tot Protein <3.0 g/dL 05/28/17 13:50 Peritoneal LDH 81 U/L (<63) H 03/15/18 13:50 Peritoneal Glucose 136 mg/dL 05/28/17 13:50 Blood Type A POSITIVE 05/28/17 10:19 Antibody Screen Negative 05/28/17 10:19 Discharge Exam - Head Exam Head Exam: ATRAUMATIC, NORMOCEPHALIC Discharge Plan - Discharge Medications Prescriptions: Spironolactone [Aldactone] 25 mg PO DAILY #30 tab Furosemide [Lasix] 20 mg PO DAILY #30 tab - Follow Up Plan Condition: STABLE Disposition: HOME/ ROUTINE Instructions: Heart Healthy Diet, Shortness of Breath (Dyspnea) (DC), Cirrhosis (DC), Community-Acquired Pneumonia in Adults, Fluid in the Belly ( Ascites) (DC), Furosemide, Spironolactone Additional Instructions: FOLLOW UP W/ DR MARTIN IN 1 WEEK' CALL DOCTOR FOR ANY MEDICAL PROBLEM OR GO TO THE NEAREST HOSPITAL IF SYMPTOMS WORSEN TAKE MEDICATIONS PRESCRIBED. AMBULATE TOLERATED. Referrals: Ally Martin MD [Staff Provider] -
== END 2017-05-31 18:31 | disposition home or self-care (01) | DRG 948 ==
LOC: C.ER 09:15 → C.9E 11:30 → C.6T 12:26 → OBSVTOIN 05-29 15:58
PROVIDERS: ADMIT Internal Medicine; ATTEND Internal Medicine
PROC: 0W9G3ZZ Drainage of Peritoneal Cavity, Percutaneous Approach (ICD-10-PCS; principal; 2017-05-28)
DX: R18.8 Other ascites (principal); C22.0 Liver cell carcinoma; B19.20 Unspecified viral hepatitis C without hepatic coma; K29.70 Gastritis, unspecified, without bleeding; I10 Essential (primary) hypertension; K44.9 Diaphragmatic hernia without obstruction or gangrene; K74.60 Unspecified cirrhosis of liver; R06.02 Shortness of breath; Z85.05 Personal history of malignant neoplasm of liver; Z87.01 Personal history of pneumonia (recurrent); Z87.891 Personal history of nicotine dependence; Z95.0 Presence of cardiac pacemaker; Z82.49 Family history of ischemic heart disease and other diseases of the circulatory system